=== PATIENT | female | born 2005 | race Caucasian/White ===

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

== ENCOUNTER 2024-03-07 19:16 | Emergency (ER) | payer BC ==
--- OUTSIDE RECORDS SUMMARY | 2024-03-07 19:19 | XMS REPORT | Continuity of Care Document ---
Author Name Unknown Address [address] [facility] [address] [place] [id number] [facility] Address [address] [facility] [address] [place] [address] Care Team Providers Care Credentials Specialist Name Role Phone KISHOR YUNG Primary Care Physician ARMIDA Mazariegos Attending Clinician Unavailab ARMIDA Barrett Attending Clinician Unavailab Armida Barrett DO Attending Clinician [phone] AMERICO NICOLE Attending Clinician Unavailable Americo Nicole MD Attending Clinician [phone] GC_GCBZW_Kadiyala_S Attending Clinician Unavaila Jonel Abdullahi Attending Clinician Unavailable Jonel Montgomery Attending Clinician [phone] Brianda Berry NP Attending Clinician [phone] CLARE VAZQUEZ Attending Clinician Unavailable Clare Rodríguez Attending Clinician + [phone] Pob, [facility] Main Attending Clinician UnavailAngelo Amaya MD Attending Clinician + [phone] ANGELO DUNCAN Attending Clinician Unavailkelly woodson Doctor Unassigned, Export Attending Clinician U RAFAELA Luna Attending Clinician Unavailable Lynda Pitts DO Attending Clinician [phone] Star Vigil MD Attending Clinician [phone] Rafaela Rooney MD Attending Clinician [phone] Lynda Norman MD Attending Clinician [phone] LYNDA NORMAN Attending Clinician Unavailable [email or web address]_Kadiyala_S Admitting Clinician UnavailRAFAELA Mi Admitting Clinician Unavailable Rafaela Rooney MD Admitting Clinician [phone] Payers Payer Name Policy Type Policy Number Effective Date Expirati on Date Source [facility] [id number] 2019 00:00:00 Problems Condition Name Condition Details Condition Category Status Onset Date Resolution Date Last Treatment Date Treating Clinician Comments Source Morbid obesity with body mass index of 40.0-49.9 Morbid obesity with body mass index of 40.0-49.9 Disease Active 01-02 00:00: 00 [facility] DUB (dysfuncti onal uterine bleeding) DUB (dysfuncti onal uterine bleeding) Disease Active 01-01 00:00: 00 [facility] No known active problems No known active problems Disease [facility] Allergies, Adverse Reactions, Alerts Allergy Name Allergy Type Status Severity Reaction(s) Onset Date Inactive Date Treating Clinician Comments Source Hydroxyz ine Propensi ty to adverse reaction s Active Rash 2020-07 00:00: 00 [facility] HYDROXYZ INE DRUG INGREDI Active Rash 2020-07 00:00: 00 [facility] Social History Social Habit Start Date Stop Date Quantity Comments Source Gender identity [facility] of Social function 2024-03-05 00:00:00 2024-03-05 00:00:00 [facility] Exposure to SARS-CoV-2 (event) 2022-01-04 00:00:00 2022-01-14 10:13:00 Not sure [facility] Tobacco use and exposure 2022-01-01 00:00:00 2022-01-01 00:00:00 Smokeless tobacco non-user [facility] Education 2022-01-01 00:00:00 2022-01-01 00:00:00 13 [facility] Sex assigned at 2003 00:00:00 2005 00:00:00 [facility] Smoking Status Start Date Stop Date Source Unknown if ever smoked [facility] Never smoked tobacco [facility] Medications Ordered Medication Name Filled Medication Name Start Date Stop Date Current Medication? Ordering Clinician Indication Dosage Frequency Signature (SIG) Comments Components Source ondansetron 4 mg disintegrat ing tablet 04-02 00:00: 00 Yes [id number] 4mg Take 1 tablet by mouth every 8 (eight) hours as needed for Nausea and Vomiting (N/V). [facility] benzonatate 200 mg capsule 04-02 00:00: 00 Yes [id number] 200mg Take 1 capsule by mouth 3 (three) times daily as needed for Cough for up to 20 doses. [facility] ibuprofen 600 mg tablet 04-02 00:00: 00 Yes [id number] 600mg Take 1 tablet by mouth every 6 (six) hours as needed for Pain (scale 4-6). [facility] cefdinir 300 mg capsule 04-02 00:00: 00 04-13 04:59 :00 No [id number] 300mg Take 1 capsule by mouth every 12 (twelve) hours for 10 days. [facility] penicillin g benzathine (BICILLIN L-A) injection 1.2 Million Units 01-23 18:00: 00 01-23 17:58 :00 No 1.210 1.2 Million Units, Intramuscu lar, ONCE, 1 dose, On Ina 01/23/23 at 1300, ANTONI
Re ason for Anti-Infec tive: Empiric Therapy for Suspected Infection< br>Empiric Therapy Site: HEENT
D uration of therapy: 72 hours [facility] medroxyPROG ESTERone 10 mg tablet 01-09 00:00: 00 01-02 00:00 :00 No [id number] 100 20mg Take 2 tablets by mouth daily for 10 days. [facility] escitalopra m oxalate (LEXAPRO) 10 mg tablet 01-04 00:15: 02 Yes 10mg Take 10 mg by mouth daily. [facility] escitalopra m oxalate (LEXAPRO) tablet 10 mg 01-03 14:00: 00 Yes 10mg 10 mg, Oral, DAILY, First dose on Fri01/03/22 at 0900, Until Discontinu ed, Routine [facility] medroxyPROG ESTERone (CYCRIN) tablet 20 mg 01-02 13:00: 00 01-09 12:59 :00 No 20mg [Order 1 Start] Name: medroxyPRO GESTERone (CYCRIN) tablet 20 mg Signed Summary: 20 mg, Oral, TID, 21 doses, First dose on Fri01/02/22 at 0800, Last dose on Fri01/08/22 at 2000, Routine [Order 1 End] [Order 2 Start] Name: medroxyPRO GESTERone (CYCRIN) tablet 20 mg Signed Summary: 20 mg, Oral, DAILY, First dose on Fri01/09/22 at 0900, Until Discontinu ed, Routine [Order 2 End] [facility] escitalopra m oxalate (LEXAPRO) 10 mg tablet 01-02 12:19: 03 Yes 10mg Take 10 mg by mouth daily. [facility] sertraline HCl (ZOLOFT ORAL) 01-02 10:31: 12 01-02 00:00 :00 No 50mg Take 50 mg by mouth daily. [facility] phentermine 37.5 mg tablet 01-02 10:31: 12 01-02 00:00 :00 No 37.5mg Take 37.5 mg by mouth daily with breakfast. [facility] acetaminoph en (TYLENOL) tablet 650 mg 01-02 03:30: 00 01-02 02:19 :00 No 650mg 650 mg, Oral, ONCE, 1 dose, On Fri01/01/22 at 2230, ANTONI [facility] NaCl 0.9% (NS) IV infusion 1,000 mL 01-02 03:15: 00 Yes 1000mL at 125 mL/hr, IV Infusion, CONTINUOUS , Starting on Fri01/01/22 at 2215, Until Discontinu ed, Routine [facility] ondansetron (ZOFRAN (PF)) injection 4 mg 01-02 03:07: 36 Yes 4mg 4 mg, Slow IV Push, Q6HPRN, Starting on Fri01/01/22 at 7, Until Discontinu ed, Routine, Nausea and Vomiting (N/V) [facility] HYDROcodone -acetaminop hen (NORCO) 10-325 mg tablet 1 tablet 01-02 03:07: 34 Yes 1{tbl} 1 tablet, Oral, Q6HPRN, Starting on Fri01/01/22 at 2207, Until Discontinu ed, Routine, Pain (scale 7-10) [facility] traMADoL (ULTRAM) tablet 50 mg 01-02 03:07: 31 01-04 03:06 :31 No 50mg 50 mg, Oral, Q8HPRN, Starting on Fri01/01/22 at 2206, Until Ina 01/03/22 at 2205, Routine, Pain (scale 4-6) [facility] acetaminoph en (TYLENOL) tablet 650 mg 01-02 03:07: 29 Yes 650mg 650 mg, Oral, Q6HPRN, Starting on Fri01/01/22 at 2206, Until Discontinu ed, Routine, Pain (scale 1-3) [facility] iopamidol (ISOVUE 370-500 mL) injection 70 mL 01-02 01:45: 00 01-02 00:31 :00 No [id number] 100 70mL 70 mL, Intravenou s, ONCE, 1 dose, On Fri01/01/22 at 2044, Routine [facility] medroxyPROG ESTERone 10 mg tablet 01-02 00:00: 00 01-10 04:59 :00 No [id number] 100 20mg Take 2 tablets by mouth 3 (three) times daily for 7 days. [facility] megestroL 40 mg tablet 01-01 00:00: 00 01-02 00:00 :00 No [id number] 100 Take by mouth Take one tablet twice a day for 7 days, then 1 tablet by mouth daily for 14 days. [facility] No known medications 2020-07 13:39: 35 No [facility] sertraline HCl (ZOLOFT ORAL) 2020-07 09:09: 46 Yes 50mg Take 50 mg by mouth daily. [facility] Immunizations Ordered Immunization Name Filled Immunization Name Date Status Comments Source SARS-COV-2 COVID-19 PFIZER VACCINE 2021-07-30 00:00:00 Completed [facility] SARS-COV-2 COVID-19 PFIZER VACCINE 2021-07-30 00:00:00 Completed [facility] SARS-COV-2 COVID-19 PFIZER VACCINE 2021-07-30 00:00:00 Completed [facility] SARS-COV-2 COVID-19 PFIZER VACCINE 2021-07-30 00:00:00 Completed [facility] SARS-COV-2 COVID-19 PFIZER VACCINE 2021-07-30 00:00:00 Completed [facility] SARS-COV-2 COVID-19 PFIZER VACCINE 2021-07-30 00:00:00 Completed [facility] SARS-COV-2 COVID-19 PFIZER VACCINE 2021-07-30 00:00:00 Completed [facility] SARS-COV-2 COVID-19 PFIZER VACCINE 2021-02-22 00:00:00 Completed [facility] SARS-COV-2 COVID-19 PFIZER VACCINE 2021-02-22 00:00:00 Completed [facility] SARS-COV-2 COVID-19 PFIZER VACCINE 2021-02-22 00:00:00 Completed [facility] SARS-COV-2 COVID-19 PFIZER VACCINE 2021-02-22 00:00:00 Completed [facility] SARS-COV-2 COVID-19 PFIZER VACCINE 2021-02-22 00:00:00 Completed [facility] SARS-COV-2 COVID-19 PFIZER VACCINE 2021-02-22 00:00:00 Completed [facility] SARS-COV-2 COVID-19 PFIZER VACCINE 2021-02-22 00:00:00 Completed [facility] Influenza Virus Vaccine Quad IM 3+ YRS 2017-05-20 00:00:00 Completed [facility] Influenza Virus Vaccine Quad IM 3+ YRS 2017-05-20 00:00:00 Completed [facility] Influenza Virus Vaccine Quad IM 3+ YRS 2017-05-20 00:00:00 Completed [facility] Influenza Virus Vaccine Quad IM 3+ YRS 2017-05-20 00:00:00 Completed [facility] Influenza Virus Vaccine Quad IM 3+ YRS 2017-05-20 00:00:00 Completed [facility] Influenza Virus Vaccine Quad IM 3+ YRS 2017-05-20 00:00:00 Completed [facility] Influenza Virus Vaccine Quad IM 3+ YRS 2017-05-20 00:00:00 Completed [facility] Influenza Virus Vaccine Quad IM 3+ YRS Unknown Completed [facility] SARS-COV-2 COVID-19 PFIZER VACCINE Unknown Completed [facility] SARS-COV-2 COVID-19 PFIZER VACCINE Unknown Completed [facility] Influenza Virus Vaccine Quad IM 3+ YRS Unknown Completed [facility] SARS-COV-2 COVID-19 PFIZER VACCINE Unknown Completed [facility] SARS-COV-2 COVID-19 PFIZER VACCINE Unknown Completed [facility] Vital Signs Vital Name Observation Time Observation Value Comments S ource Systolic blood pressure 2024-03-05 16:45:00 159 mm[Hg] [facility] Diastolic blood pressure 2024-03-05 16:45:00 130 mm[Hg] [facility] Heart rate 2024-03-05 16:45:00 96 /min [facility] 2024-03-05 16:45:00 36.28 Jennifer [facility] Respiratory rate 2024-03-05 16:45:00 17 /min [facility] Body height 2024-03-05 16:45:00 165.1 cm [facility] Body weight 2024-03-05 16:45:00 113.399 kg [facility] BMI 2024-03-05 16:45:00 41.60 kg/m2 [facility] Oxygen saturation in Arterial blood by Pulse oximetry 2024-03-05 16:45:00 96 /min [facility] Systolic blood pressure 2023-06-12 20:38:00 150 mm[Hg] [facility] Diastolic blood pressure 2023-06-12 20:38:00 80 mm[Hg] [facility] Heart rate 2023-06-12 20:38:00 93 /min [facility] Body temperature 2023-06-12 20:38:00 37.22 Jennifer [facility] Respiratory rate 2023-06-12 20:38:00 18 /min [facility] Body height 2023-06-12 20:38:00 165.1 cm [facility] Body weight 2023-06-12 20:38:00 106.595 kg [facility] BMI 2023-06-12 20:38:00 39.11 kg/m2 [facility] Oxygen saturation in Arterial blood by Pulse oximetry 2023-06-12 20:38:00 100 /min [facility] Systolic blood pressure 2023-04-02 12:57:00 136 mm[Hg] [facility] Diastolic blood pressure 2023-04-02 12:57:00 91 mm[Hg] [facility] Heart rate 2023-04-02 12:57:00 93 /min [facility] Body temperature 2023-04-02 12:57:00 36.78 Jennifer [facility] Respiratory rate 2023-04-02 12:57:00 16 /min [facility] Body weight 2023-04-02 12:57:00 105.235 kg [facility] BMI 2023-04-02 12:57:00 38.61 kg/m2 [facility] Oxygen saturation in Arterial blood by Pulse oximetry 2023-04-02 12:57:00 100 /min [facility] Systolic blood pressure 2023-04-02 01:41:00 148 mm[Hg] [facility] Diastolic blood pressure 2023-04-02 01:41:00 96 mm[Hg] [facility] Heart rate 2023-04-02 01:41:00 97 /min [facility] Body temperature 2023-04-02 01:41:00 37.61 Jennifer [facility] Respiratory rate 2023-04-02 01:41:00 20 /min [facility] Body height 2023-04-02 01:41:00 165.1 cm [facility] Body weight 2023-04-02 01:41:00 105.416 kg [facility] BMI 2023-04-02 01:41:00 38.67 kg/m2 [facility] Oxygen saturation in Arterial blood by Pulse oximetry 2023-04-02 01:41:00 100 /min [facility] Systolic blood pressure 2023-01-23 15:56:00 142 mm[Hg] [facility] Diastolic blood pressure 2023-01-23 15:56:00 98 mm[Hg] [facility] Heart rate 2023-01-23 15:56:00 108 /min [facility] Body temperature 2023-01-23 15:56:00 37.06 Jennifer [facility] Respiratory rate 2023-01-23 15:56:00 18 /min [facility] Body height 2023-01-23 15:56:00 165.1 cm [facility] Body weight 2023-01-23 15:56:00 107.049 kg [facility] BMI 2023-01-23 15:56:00 39.27 kg/m2 [facility] Oxygen saturation in Arterial blood by Pulse oximetry 2023-01-23 15:56:00 99 /min [facility] Systolic blood pressure 2022-01-14 20:22:00 159 mm[Hg] [facility] Diastolic blood pressure 2022-01-14 20:22:00 99 mm[Hg] [facility] Heart rate 2022-01-14 20:22:00 111 /min [facility] Body temperature 2022-01-14 20:22:00 36.89 Jennifer [facility] Respiratory rate 2022-01-14 20:22:00 20 /min [facility] Body weight 2022-01-14 20:22:00 117.935 kg [facility] Oxygen saturation in Arterial blood by Pulse oximetry 2022-01-14 20:22:00 99 /min [facility] Heart rate 2022-01-02 12:36:00 95 /min [facility] Respiratory rate 2022-01-02 12:36:00 18 /min [facility] Oxygen saturation in Arterial blood by Pulse oximetry 2022-01-02 12:36:00 97 /min [facility] Systolic blood pressure 2022-01-02 12:21:00 126 mm[Hg] [facility] Diastolic blood pressure 2022-01-02 12:21:00 69 mm[Hg] [facility] Body temperature 2022-01-02 12:21:00 35.61 Jennifer [facility] Body weight 2022-01-02 08:12:00 129.094 kg [facility] BMI 2022-01-02 08:12:00 47.36 kg/m2 [facility] Body mass index (BMI) [Percentile] Per age and sex 2022-01-02 08:12:00 99.30 % [facility] Body height 2022-01-02 03:19:00 165.1 cm [facility] Systolic blood pressure 2021-06-18 15:06:00 139 mm[Hg] [facility] Diastolic blood pressure 2021-06-18 15:06:00 68 mm[Hg] [facility] Heart rate 2021-06-18 15:06:00 107 /min [facility] Body height 2021-06-18 15:06:00 166.8 cm [facility] Body weight 2021-06-18 15:06:00 120.2 kg [facility] BMI 2021-06-18 15:06:00 43.20 kg/m2 [facility] Body mass index (BMI) [Percentile] Per age and sex 2021-06-18 15:06:00 99.15 % [facility] Procedures Procedure Date / Time Performed Performing Clinician Source CONSENT/REFUSAL FOR DIAGNOSIS AND TREATMENT 2023-06-12 20:29:28 Doctor Unassigned, Export [facility] ASSIGNMENT OF BENEFITS 2023-04-02 14:21:38 Docto r Unassigned, Export [facility] POCT TEST 2023-04-02 13:31:00 Jonel Brennan [facility] URINALYSIS 2023-04-02 13:30:00 Jonel Brennan [facility] RAPID INFLUENZA A/B 2023-04-02 13:30:00 Jonel Brennan [facility] COVID-19 (ID NOW RAPID TESTING) 2023-04-02 13:30:00 Jonel Brennan [facility] CONSENT/REFUSAL FOR DIAGNOSIS AND TREATMENT 2023-04-02 12:52:27 Doctor Unassigned, Export [facility] NOTICE OF PRIVACY PRACTICES 2023-04-02 01:19:44 Doctor Unassigned, Export [facility] CONSENT/REFUSAL FOR DIAGNOSIS AND TREATMENT 2023-04-02 01:18:55 Doctor Unassigned, Export [facility] RAPID STREP SCREEN FOR GROUP A 2023-01-23 16:23:00 Armida Dominguez [facility] ASSIGNMENT OF BENEFITS 2023-01-23 16:13:09 Docto r Unassigned, Export [facility] CONSENT/REFUSAL FOR DIAGNOSIS AND TREATMENT 2023-01-23 15:52:18 Doctor Unassigned, Export [facility] CONSENT/REFUSAL FOR DIAGNOSIS AND TREATMENT 2022-01-14 20:40:13 Doctor Unassigned, Export [facility] CONSENT/REFUSAL FOR DIAGNOSIS AND TREATMENT 2022-01-14 14:50:08 Doctor Unassigned, Export [facility] ASSIGNMENT OF BENEFITS 2022-01-14 14:49:53 Docto r Unassigned, Export [facility] BASIC METABOLIC PANEL (NA, K, CL, CO2, GLUCOSE, BUN, CREATININE, CA) 2022-01-02 08:18:00 [facility] CBC WITH DIFF 2022-01-02 08:18:00 Rafaela Rooney [facility] CT ABDOMEN PELVIS WO CONTRAST 2022-01-02 01:17:00 Star Vigil [facility] CT CHEST PULMONARY ANGIOGRAM 2022-01-02 00:38:00 Star Vigil [facility] US PELVIS COMPLETE WITH TRANSVAGINAL 2022-01-01 23:43:36 Lynda Pitts [facility] POCT TEST 2022-01-01 22:53:00 Dipak Pitts [facility] COMP. METABOLIC PANEL ([id number]) 2022-01-01 22:50:00 Lynda Pitts [facility] CBC WITH DIFF 2022-01-01 22:50:00 Lynda Pitts [facility] URINALYSIS 2022-01-01 22:50:00 Lynda Pitts [facility] COVID-19 (ID NOW RAPID TESTING) 2022-01-01 22:50:00 Lynda Pitts [facility] CONSENT/REFUSAL FOR DIAGNOSIS AND TREATMENT 2022-01-01 22:17:00 Doctor Unassigned, Export [facility] EXTERNAL PROVIDER RECORDS 2021-07-02 06:01:00 Doctor Unassigned, Export [facility] SCANNED LAB RESULTS 2021-04-30 05:01:00 Doctor Maria Elena brownsignconrad, Export [facility] Encounters Start Date/Time End Date/Time Encounter Type Admission Type Attending Clinicians Care Facility Care Department Encounter ID Source 2024-03-05 11:50:00 2024-03-05 12:13:00 Emergency ARMIDA ACEVEDO SANDRA [facility] ERT [id number] [facility] 2024-03-05 11:50:00 2024-03-05 12:13:00 Emergency Armida Dominguez [facility] [id number] [facility] 2023-06-12 14:39:00 2023-06-12 16:14:00 Emergency AMERICO ARIAS [facility] ERT [id number] [facility] 2023-06-12 14:39:00 2023-06-12 16:14:00 Emergency Americo Nicole [facility] [id number] [id number] [id number] [facility] 2023-05-28 00:00:00 2023-05-28 00:00:00 Outpatient GC_GCBZW_Ka diyala_S [facility] [id number] [facility] 2023-04-02 07:59:00 2023-04-02 09:31:00 Emergency X Jonel BRENNAN [facility] ERT [id number] [facility] 2023-04-02 07:59:00 2023-04-02 09:31:00 Emergency Jonel Brennan [facility] [id number] [id number] [facility] 2023-04-01 20:43:00 2023-04-01 22:39:00 Emergency Brianda Berry [facility] [id number] [id number] [id number] [facility] 2023-04-01 20:43:00 2023-04-01 22:39:00 Emergency X BRIANDA BERRY [facility] ERT [id number] [facility] 2023-01-23 10:58:00 2023-01-23 13:08:00 Emergency X ARMIDA DOMINGUEZ [facility] ERT [id number] [facility] 2023-01-23 10:58:00 2023-01-23 13:08:00 Emergency Armida Dominguez [facility] [id number] [id number] [id number] [id number] [facility] 2022-01-14 15:26:00 2022-01-14 16:52:00 Emergency X CLARE VAZQUEZ [facility] ERT [id number] [facility] 2022-01-14 15:26:00 2022-01-14 16:52:00 [facility] 1..114 [id number] [id number] [id number] [facility] 2022-01-14 12:00:00 2022-01-14 12:15:00 Oriental Rug Repairer Visit Pob, Adc Lab Main [place] [facility] PROFESSIO [facility] 1..114 [id number] [id number] [id number] [facility] 2022-01-14 12:00:00 2022-01-14 12:00:00 Outpatient R [facility] [id number] [facility] 2022-01-14 00:00:00 2022-01-14 00:00:00 Orders Only Doctor Unassigned, Export [facility] 1..114 350.1.13.10 4.2.7.2.686 [id number] [facility] 2022-01-01 17:22:00 2022-01-02 12:15:[address] [facility] [id number] [facility] 2022-01-01 17:22:00 2022-01-02 12:15:00 [facility]..114 350.1.13.10 4.2.7.2.686 [id number] [facility] 2021-07-02 00:00:00 2021-07-02 00:00:00 Orders Only Doctor Unassigned, Export [facility] 1.20.114 350.1.13.10 4.2.7.2.686 [id number] [facility] 2021-06-18 08:56:35 2021-06-18 09:16:35 Office Visit Lynda Norman [facility] 1.2.840.114 350.1.13.10 4.2.7.2.686 [id number] [facility] 2021-06-18 09:10:00 2021-06-18 09:10:00 Outpatient R LYNDA NORMAN [facility] [id number] [facility] 2021-06-18 00:00:00 2021-06-18 00:00:00 Orders Only Doctor Unassigned, Export [facility] 1..840.114 350.1.13.10 4.2.7.2.686 [id number] [facility] 2021-04-30 00:00:00 2021-04-30 00:00:00 Orders Only Doctor Unassigned, Export [facility] 1.2.840.114 350.1.13.10 4.2.7.2.686 [id number] [facility] Results Test Description Test Time Test Comments Results Result Co mments Source [facility] (NA, K, CL, CO2, GLUCOSE, BUN, CREATININE, CA)2022-01-02 09:17:29* Test Item Value Reference Range Interpretation Comme nts NA (test code = 7450703771) 139 mmol/L 135-145 K (test code = 6042770963) 3.5 mmol/L 3.5-5.0 CL (test code = 4007862674) 105 mmol/L 98-108 CO2 TOTAL (test code = 7091305195) 26 mmol/L 23-31 AGAP (test code = 1822702532) 2-16 BUN (test code = 6103479802) 7 mg/dL 7-23 GLUCOSE (test code = 0739816113) 130 mg/dL 70-110 H CREATININE (test code = 2100679087) 0.72 mg/dL 0.50-1.04 CALCIUM (test code = 2635755946) 8.9 mg/dL 8.6-10.6 eGFR (test code = 8255981865) mL/min/1.73m2 LILIANA (test code = LILIANA) Association of Glomerular Filtration Rate (GFR) and Staging of Kidney Disease* + --+ --+ ------+| GFR (mL/min/1.73 m2) ?| With Kidney Damage ?| ?Without Kidney Damage+ --------+ --------+ +| ?>90 ?| ?Stage one ?| ? Normal ?+ ---+ ---+ -------+| ?60-89 ?| ?Stage two ?| ? Decreased GFR ? + --+ --+ ------+| ?30-59 ?| ?Stage three ?| ? Stage three ? + --+ --+ ------+| ?15-29 ?| ?Stage four ? | ? Stage four ?+ ---+ ---+ -------+| ?<15 (or dialysis) ? ?| ?Stage five ? | ? Stage five ?+ ---+ ---+ -------+ *Each stage assumes the associated GFR level has been in effect for at least three months. ?Stages 1 to 5, with or without kidney disease, indicate chronic kidney disease. Notes: Determination of stages one and two (with eGFR >59mL/min/1.73 m2) requires estimation of kidney damage for at least three months as defined by structural or functional abnormalities of the kidney, manifested by either:Pathological abnormalities or Markers of kidney damage (including abnormalities in the composition of the blood or urine or abnormalities in imaging tests). Lab Interpretation (test code = 41021-9) Abnormal [facility] with [id number] 09:02:06* Test Item Value Reference Range Interpretation Comme nts WBC (test code = 6690-2) See_Comment [Automated BeavEx] The system which generated this result transmitted reference range: 4.50 - 13.50 10*3/?L. The reference range was not used to interpret this result as normal/abnormal. RBC (test code = 789-8) See_Comment L [Automated BeavEx] The system which generated this result transmitted reference range: 4.10 - 5.10 10*6/?L. The reference range was not used to interpret this result as normal/abnormal. HGB (test code = 718-7) 9.8 g/dL 12.0-16.0 L HCT (test code = 4544-3) 29.9 % 36.0-45.0 L MCV (test code = 787-2) 84.2 fL 78.0-95.0 MCH (test code = 785-6) 27.6 pg 26.0-32.0 MCHC (test code = 786-4) 32.8 g/dL 32.0-36.0 RDW-SD (test code = 40059-9) 42.3 fL 38.5-49.0 RDW-CV (test code = 788-0) 13.6 % 11.5-14.0 PLT (test code = 777-3) See_Comment [Automated EpiVaxa ge] The system which generated this result transmitted reference range: 135 - 361 10*3/?L. The reference range was not used to interpret this result as normal/abnormal. MPV (test code = 63565-1) 11.0 fL 9.4-13.3 NRBC/100 WBC (test code = 6215407049) See_Comment [Automated Smallknot ssage] The system which generated this result transmitted reference range: 0.0 - 10.0 /100 WBCs. The reference range was not used to interpret this result as normal/abnormal. NRBC x10^3 (test code = 1276341064) <0.01 See_Comment [Automated EpiVaxa ge] The system which generated this result transmitted reference range: 10*3/?L. The reference range was not used to interpret this result as normal/abnormal. GRAN MAT (NEUT) % (test code = 770-8) 52.2 % IMM GRAN % (test code = 6000332533) 0.40 % LYMPH % (test code = 736-9) 38.6 % MONO % (test code = 5905-5) 6.4 % EOS % (test code = 713-8) 1.8 % BASO % (test code = 706-2) 0.6 % GRAN MAT x10^3(ANC) (test code = 4246871455) 4.14 10*3/uL 1.50-10.30 IMM GRAN x10^3 (test code = 5803525320) 0.03 10*3/uL 0.00-0.06 LYMPH x10^3 (test code = 731-0) 3.06 10*3/uL 0.70-7.40 MONO x10^3 (test code = 742-7) 0.51 10*3/uL 0.00-0.50 H EOS x10^3 (test code = 711-2) 0.14 10*3/uL 0.00-0.40 BASO x10^3 (test code = 704-7) 0.05 10*3/uL 0.00-0.10 Lab Interpretation (test code = 98750-1) Abnormal [facility] (81082)2022-01-01 23:36:03* Test Item Value Reference Range Interpretation Comme nts NA (test code = 2392022023) 137 mmol/L 135-145 K (test code = 4185653649) 3.7 mmol/L 3.5-5.0 CL (test code = 5843117999) 103 mmol/L 98-108 CO2 TOTAL (test code = 6608644541) 23 mmol/L 23-31 AGAP (test code = 5154617590) 2-16 BUN (test code = 3751068531) 7 mg/dL 7-23 GLUCOSE (test code = 1020291409) 147 mg/dL 70-110 H CREATININE (test code = 6167522349) 0.74 mg/dL 0.50-1.04 TOTAL BILI (test code = 6264543506) 0.6 mg/dL 0.1-1.1 CALCIUM (test code = 7664322544) 9.3 mg/dL 8.6-10.6 T PROTEIN (test code = 7617598409) 7.3 g/dL 6.3-8.2 ALBUMIN (test code = 6302976445) 4.4 g/dL 3.5-5.0 ALK PHOS (test code = 4033776676) 80 U/L 34-122 ALTv (test code = 1742-6) 19 U/L 5-35 AST(SGOT) (test code = 9144069438) 23 U/L 13-40 eGFR (test code = 7398200674) mL/min/1.73m2 LILIANA (test code = LILIANA) Association of Glomerular Filtration Rate (GFR) and Staging of Kidney Disease* + --+ --+ ------+| GFR (mL/min/1.73 m2) ?| With Kidney Damage ?| ?Without Kidney Damage+ --------+ --------+ +| ?>90 ?| ?Stage one ?| ? Normal ?+ ---+ ---+ -------+| ?60-89 ?| ?Stage two ?| ? Decreased GFR ? + --+ --+ ------+| ?30-59 ?| ?Stage three ?| ? Stage three ? + --+ --+ ------+| ?15-29 ?| ?Stage four ? | ? Stage four ?+ ---+ ---+ -------+| ?<15 (or dialysis) ? ?| ?Stage five ? | ? Stage five ?+ ---+ ---+ -------+ *Each stage assumes the associated GFR level has been in effect for at least three months. ?Stages 1 to 5, with or without kidney disease, indicate chronic kidney disease. Notes: Determination of stages one and two (with eGFR >59mL/min/1.73 m2) requires estimation of kidney damage for at least three months as defined by structural or functional abnormalities of the kidney, manifested by either:Pathological abnormalities or Markers of kidney damage (including abnormalities in the composition of the blood or urine or abnormalities in imaging tests). Lab Interpretation (test code = 05062-4) Abnormal [facility] WITH [id number] 23:15:57* Test Item Value Reference Range Interpretation Comme nts WBC (test code = 6690-2) See_Comment [Automated BeavEx] The system which generated this result transmitted reference range: 4.50 - 13.50 10*3/?L. The reference range was not used to interpret this result as normal/abnormal. RBC (test code = 789-8) See_Comment L [Automated BeavEx] The system which generated this result transmitted reference range: 4.10 - 5.10 10*6/?L. The reference range was not used to interpret this result as normal/abnormal. HGB (test code = 718-7) 10.5 g/dL 12.0-16.0 L HCT (test code = 4544-3) 31.6 % 36.0-45.0 L MCV (test code = 787-2) 83.4 fL 78.0-95.0 MCH (test code = 785-6) 27.7 pg 26.0-32.0 MCHC (test code = 786-4) 33.2 g/dL 32.0-36.0 RDW-SD (test code = 57057-7) 41.6 fL 38.5-49.0 RDW-CV (test code = 788-0) 13.6 % 11.5-14.0 PLT (test code = 777-3) See_Comment [Automated messa ge] The system which generated this result transmitted reference range: 135 - 361 10*3/?L. The reference range was not used to interpret this result as normal/abnormal. MPV (test code = 32990-4) 10.8 fL 9.4-13.3 NRBC/100 WBC (test code = 8609752114) See_Comment [Automated Smallknot ssage] The system which generated this result transmitted reference range: 0.0 - 10.0 /100 WBCs. The reference range was not used to interpret this result as normal/abnormal. NRBC x10^3 (test code = 4701800988) <0.01 See_Comment [Automated messa ge] The system which generated this result transmitted reference range: 10*3/?L. The reference range was not used to interpret this result as normal/abnormal. GRAN MAT (NEUT) % (test code = 770-8) 67.9 % IMM GRAN % (test code = 8315644221) 0.40 % LYMPH % (test code = 736-9) 25.9 % MONO % (test code = 5905-5) 4.1 % EOS % (test code = 713-8) 1.1 % BASO % (test code = 706-2) 0.6 % GRAN MAT x10^3(ANC) (test code = 8937266418) 6.14 10*3/uL 1.50-10.30 IMM GRAN x10^3 (test code = 7493342373) 0.04 10*3/uL 0.00-0.06 LYMPH x10^3 (test code = 731-0) 2.34 10*3/uL 0.70-7.40 MONO x10^3 (test code = 742-7) 0.37 10*3/uL 0.00-0.50 EOS x10^3 (test code = 711-2) 0.10 10*3/uL 0.00-0.40 BASO x10^3 (test code = 704-7) 0.05 10*3/uL 0.00-0.10 Lab Interpretation (test code = 12044-4) Abnormal [facility] [id number] 22:53:00* Test Item Value Reference Range Interpretation Comme nts POCT PREG (test code = 1605) negative On board controls acceptable with C Line (test code = 3574) present POCT PREG LOT # (test code = 3575) [id number] POCT PREG TEST DATE ( test code = 3576) 04/26/2023 Lab Interpretation (test cod e = 53249-7) Normal [facility] Notes Date/Time Note Provider Source 2024-03-05 12:00:00 Pt given printed and verbal discharge instructions regarding radial styloid tenosynovitis, encouraged hydration. Discussed ibuprofen and to take with food to avoid GI distress. Pt verbalized understanding of instructions, pt awake alert oriented, resp reg unlabored, skin w/d, color appropriate for race, moves all ext well,pt encouraged to follow up with pcp. Advised to seek medical attention for new/prolonged/worsening of symptoms. Awake, alert oriented, resp reg unlabored, skin w/d, pt leaving amb with steady gait, in no apparent distress. T [facility] 2024-03-05 11:45:37 Patient states: "I've been having right wrist pain since 4 days now. The pain came out of nowhere. Yesterday the pain is worse." T Becky Montgomery RN [facility] 2024-03-05 11:39:00 [facility] Emergency Department Note Patient Name: De Ross Date of : 2005 18 year old female Treatment Room: [facility] ED [facility] Primary Care Physician: Kishor Yung Patient Escorted by: Self [9] Mode of Arrival: Personal means [1] EMS Treatment Prior to ED Arrival: Travel and Exposure Screening: Symptoms Does patient have any of these symptoms?: (not recorded) Exposure Screening Has patient had contact with someone with a communicable disease in the last month?: (not recorded) Diseases exposed to:: (not recorded) Is Patient ?: (not recorded) Exposure Date: (not recorded) Chief Complaint: Chief Complaint Patient presents with Wrist Pain right History of Present Illness: The patient presents from home for evaluation for right wrist pain for the past several days. She denies any injury or trauma. She is right-handed. She reports the pain is worse with movement of her thumb. She denies other complaints. Here for evaluation. Past Medical History/Immunizations: Past Medical History: Diagnosis Date Depression Allergies: Allergies Allergen Reactions Hydroxyzine Rash Past Social History: Tobacco Use Never smoked or used smokeless tobacco. Past Surgical History: History reviewed. No pertinent surgical history. Review of Systems: Review of Systems Constitutional: Negative for chills and fever. Respiratory: Negative for cough. Cardiovascular: Negative for chest pain. Gastrointestinal: Negative for abdominal pain. Genitourinary: Negative for dysuria. Musculoskeletal: Positive for arthralgias. Negative for neck pain and neck stiffness. Skin: Negative for wound. Neurological: Negative for dizziness. Psychiatric/Behavioral: Negative for agitation. Endocrine: Negative for goiter. Physical Exam: ED Triage Vitals [03/05/24 1145] Weight 113.4 kg (250 lb) Actual or estimated Estimated by patient/family report Height 1.651 m (5' 5") BP (!) 159/130 Pulse 96 Resp 17 Temp 36.3 ?C (97.3 ?F) Temp source Oral SpO2 96 % Measured on Room air Physical Exam Vitals and nursing note reviewed. Constitutional: Appearance: Normal appearance. She is obese. HENT: Head: Normocephalic and atraumatic. Cardiovascular: Rate and Rhythm: Normal rate. Pulses: Normal pulses. Pulmonary: Effort: Pulmonary effort is normal. Abdominal: General: There is no distension. Musculoskeletal: General: Normal range of motion. Cervical back: Neck supple. Skin: General: Skin is warm. Neurological: General: No focal deficit present. Mental Status: She is alert. Radiology: No orders to display Lab Results: Lab Results - No data to display EKG: If EKG completed, see Procedure Note. Orders and Treatments: No orders of the defined types were placed in this encounter. No orders of the defined types were placed in this encounter. First Provider Eval: ED Events Date/Time Event User Comments 03/05/24 1140 Medical Screening Begins ARMIDA DOMINGUEZ DO -- 03/05/24 1140 First Provider Evaluation ARMIDA DOMINGUEZ DO -- ED COURSE Diagnosis/Impression as of 03/05/24 1153 Radial styloid tenosynovitis Procedures: Procedures MDM: Medical Decision Making The patient presents from home for evaluation for right wrist pain for the past several days. She denies any injury or trauma. She is right-handed. She reports the pain is worse with movement of her right thumb. Vital signs are stable in ER. +2 radial pulse right side. Full range of motion of her right wrist without difficulty. Opposition and abduction of her right thumb reproduces her pain. Suspect de Quervain's tenosynovitis. Will give the patient a thumb spica splint. She remained stable here in the ER and is okay for discharge home with PCP follow-up. Problems Addressed: Radial styloid tenosynovitis: acute illness or injury Risk OTC drugs. Flowsheet Documentation: Scoring Tools: No data recorded Disposition/Condition: ED Disposition ED Disposition Disch - Home Condition Stable Comment -- Discharge Medications: Patient's Medications START taking these medications No medications on file CONTINUE taking these medications which have NOT CHANGED BENZONATATE 200 MG CAPSULE Take 1 capsule by mouth 3 (three) times daily as needed for Cough for up to 20 doses. ESCITALOPRAM OXALATE (LEXAPRO) 10 MG TABLET Take 10 mg by mouth daily. IBUPROFEN 600 MG TABLET Take 1 tablet by mouth every 6 (six) hours as needed for Pain (scale 4-6). ONDANSETRON 4 MG DISINTEGRATING TABLET Take 1 tablet by mouth every 8 (eight) hours as needed for Nausea and Vomiting (N/V). START taking Modified Medications as Prescribed No medications on file STOP taking these medications No medications on file Follow-up: Electronically signed by: Armida Dominguez DO 03/05/24 1153 [facility] 2023-04-02 09:24:05 Formatting of this n ote might be different from the original. PT D/C home. GCS15, VS stable, no ataxia noted. Given four prescriptions and D/C paperwork. Pt ambulatory at time of discharge. Pt educated on UTI, viral syndrome, med usage, follow up care, s/s worsening condition. Pt verbalized understanding. Joie Meredith RN [facility] 2023-04-02 07:57:07 Formatting of this n ote might be different from the original. C/o dysuria x2 days and cough, congestion and hiral ear pain that started yesterday. Pita Arenas RN [facility] 2023-04-01 21:30:00 Formatting of this n ote might be different from the original. PT NOT PRESENT IN TREATMENT AREA, NOT ANSWERING CALL TO WAITING ROOM. Kimberly August RN [facility] 2023-04-01 20:40:08 Formatting of this n ote might be different from the original. Pt arrived ambulatory with complaints of possible UTI. Pt reports dysuria, frequency, body aches and vomiting since last night. Pt reports unprotected sex a week ago. T [facility]
--- NOTE | 2024-03-07 20:55 | RAD REPORT ---
EXAM DESCRIPTION: RAD - Wrist Right 3 View - 03/07/2024 8:49 pm CLINICAL HISTORY: PAIN COMPARISON: No comparisons FINDINGS/IMPRESSION: No acute fracture. Ulnar minus variance. No significant focal degenerative daniels ges.
--- NOTE | 2024-03-07 21:36 | EDPHYS ---
Physician Documentation [facility] Name: Nasra Hadley Age: 18 yrs Sex: Female : 2005 Arrival Date: 03/07/2024 Time: 19:16 Bed 10 Private MD: ED Physician Gary Escudero HPI: 03/07 23:59 This 18 yrs old Female presents to ER via Ambulatory with complaints of Wrist Injury. ms3 23:59 18-year-old female with past medical history of depression presents to the emergency ms3 department for right wrist pain status post trying to catch herself when falling. Patient states she fell approximately 6 hours prior to arrival. Patient states the discomfort is sharp/shooting pain that is rated an 8.. 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 - Infectious Disease History:: Denies. - Social history:: Smoking status: Patient reports the use of cigarette tobacco products, smokes one-half pack cigarettes per day. ROS: 23:59 Constitutional: Negative for fever, and chills. Neck: Negative for injury, pain, and ms3 swelling, Cardiovascular: Negative for chest pain, and palpitations. Respiratory: Negative for shortness of breath, cough, wheezing, and pleuritic chest pain, Abdomen/GI: Negative for abdominal pain, nausea, vomiting, diarrhea, and constipation, 23:59 MS/extremity: Positive for Wrist pain, Exam: 23:59 Constitutional: This is a well developed, well nourished patient who is awake, alert, ms3 and in no acute distress. Cardiovascular: Regular rate and rhythm with a normal S1 and S2. No gallops, murmurs, or rubs. Normal PMI, no JVD. No pulse deficits. Respiratory: Lungs have equal breath sounds bilaterally, clear to auscultation and percussion. No rales, rhonchi or wheezes noted. No increased work of breathing, no retractions or nasal flaring. Abdomen/GI: Soft, non-tender, with normal bowel sounds. No distension or tympany. No guarding or rebound. No evidence of tenderness throughout. Skin: Warm, dry with normal turgor. Normal color with no rashes, no lesions, and no evidence of cellulitis. 23:59 Musculoskeletal/extremity: Extremities: noted in the Right wrist: pain, tenderness, There is no evidence of deformity, swelling, Vital Signs: 19:31 BP 134 / 74; Pulse 92; Resp 18; Temp 99(O); Pulse Ox 99% ; Weight 113.4 kg; Height 5 nj1 ft. 5 in. ; Pain 6/10; 20:00 BP 128 / 83; Pulse 81; Resp 17; Temp 98; Pulse Ox 100% on R/A; Pain 6/10; rg5 21:30 BP 122 / 77; Pulse 81; Resp 17; Temp 98; Pulse Ox 99% on R/A; Pain 3/10; rg5 19:31 Body Mass Index 41.60 (113.40 kg, 165.1 cm) nj1 19:31 Pain Scale: Adult nj1 20:00 Pain Scale: Adult rg5 21:30 Pain Scale: Adult rg5 [place] Coma Score: 20:00 Eye Response: spontaneous(4). Motor Response: obeys commands(6). Verbal Response: rg5 oriented(5). Total: 15. MDM: 20:23 Patient medically screened. ms3 23:59 Differential diagnosis: closed fracture, contusion. Data reviewed: vital signs, nurses ms3 notes, radiologic studies, and as a result, I will discharge patient. I considered the following discharge prescriptions or medication management in the emergency department Medications were administered in the Emergency Department. See MAR. Independent interpretation of the following test(s) in the Emergency Department X-Ray: My interpretation is Right wrist x-ray images reviewed by me do not reveal fracture. Counseling: I had a detailed discussion with the patient and/or guardian regarding the historical points, exam findings, and any diagnostic results supporting the discharge/admit diagnosis, radiology results, the need for outpatient follow up, to return to the emergency department if symptoms worsen or persist or if there are any questions or concerns that arise at home. Special discussion: I discussed with the patient/guardian in detail that at this point there is no indication for admission to the hospital. It is understood, however, that if the symptoms persist or worsen the patient needs to return immediately for re-evaluation. ED course: Discussed x-ray results with patient. Patient to follow-up Dr. Man in 2 to 3 days. Patient understands agrees with plan. All questions were answered. Patient currently in thumb spica splint from home. On reevaluation no signs of compartment syndrome present, right hand neurovascularly intact. 03/07 20:47 Order name: Wrist Right 3 View; Complete Time: 21:06 EDMS Administered Medications: 21:46 Drug: Ibuprofen PO 600 mg PO once Route: PO; rg5 Disposition Summary: 03/07/24 21:36 Discharge Ordered Notes: Location: Home ms3 Condition: Stable ms3 Diagnosis - Pain in right wrist ms3 Followup: ms3 - With: Bautista Man MD - When: 2 - 3 days - Reason: Recheck today's complaints Discharge Instructions: - Discharge Summary Sheet ms3 - Wrist Pain, Adult ms3 - Wrist Pain, Adult, [place] ms3 Forms: - Medication Reconciliation Form ms3 - Antibiotic Education ms3 - Prescription Opioid Use ms3 - Patient Portal Instructions ms3 - Leadership Thank You Letter ms3 Prescriptions: - Ibuprofen 600 mg Oral Tablet - take 1 tablet ORAL route every 6 hours As needed take with food; 30 tablet; ms3 Refills: 0, Product Selection Permitted Signatures: Dispatcher [employer] EDGary Marrero DO DO ms3 Izzy Espino, RN RN nj1 Wes Karimi, RN RN rg5 Corrections: (The following items were deleted from the chart) 20:47 20:24 Wrist Left 3 View+RAD.RAD.BRZ ordered. EDMS EDMS
--- NOTE | 2024-03-07 21:36 | ER ---
Nurse's Notes [facility] Name: Nasra Hadley Age: 18 yrs Sex: Female : 2005 Arrival Date: 03/07/2024 Time: 19:16 Bed 10 Private MD: Diagnosis: Pain in right wrist Presentation: 03/07 19:31 Chief complaint: Patient states: Tripped and fell hurting right hand/wrist. Coronavirus [facility] screen: Vaccine status: Patient reports receiving the 2nd dose of the covid vaccine. Ebola Screen: Patient denies travel to an Ebola-affected area in the 21 days before illness onset. Initial Sepsis Screen: Does the patient meet any 2 criteria? HR > 90 bpm. No. Patient's initial sepsis screen is negative. Does the patient have a suspected source of infection? No. Patient's initial sepsis screen is negative. Risk Assessment: Do you want to hurt yourself or someone else? Patient reports no desire to harm self or others. Onset of symptoms was March 07, 2024. 19:31 Method Of Arrival: Ambulatory [facility] 19:31 Acuity: LINDA 4 [facility] Triage Assessment: 20:00 Injury Description: swelling right wrist. 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 - Infectious Disease History:: Denies. - Social history:: Smoking status: Patient reports the use of cigarette tobacco products, smokes one-half pack cigarettes per day. Screenin:00 [facility] ED Fall Risk Assessment (Adult) History of falling in the last 3 months, rg5 including since admission No falls in past 3 months (0 pts) Confusion or Disorientation No (0 pts) Intoxicated or Sedated No (0 pts) Impaired Gait No (0 pts) Mobility Assist Device Used No (0 pt) Altered Elimination No (0 pt) Score/Fall Risk Level 0 - 2 = Low Risk Oriented to surroundings, Maintained a safe environment, Hourly rounding (assess needs \T\ fall precautionary measures) done. Abuse screen: Denies threats or abuse. Nutritional screening: No deficits noted. Tuberculosis screening: No symptoms or risk factors identified. Assessment: 20:00 General: Appears in no apparent distress. Behavior is calm, cooperative, appropriate rg5 for age. 20:00 Pain: Complains of pain in right wrist Pain currently is 6 out of 10 on a pain scale. rg5 Quality of pain is described as aching, Pain began 2 hours ago. Neuro: Level of Consciousness is awake, alert, obeys commands, Oriented to person, place, time. Cardiovascular: Denies chest pain, shortness of breath, Capillary refill < 3 seconds. Respiratory: Airway is patent Trachea midline Respiratory effort is even, unlabored, Respiratory pattern is regular, symmetrical. GI: Abdomen is round non-distended. : No signs and/or symptoms were reported regarding the genitourinary system. EENT: No deficits noted. Derm: Skin is intact, Skin is dry, Skin is normal, Skin temperature is warm. Musculoskeletal: Range of motion: intact in all extremities. 21:30 Reassessment: Patient and/or family updated on plan of care and expected duration. Pain rg5 level reassessed. Patient is alert, oriented x 3, equal unlabored respirations, skin warm/dry/pink. Patient states feeling better. Patient states symptoms have improved. Vital Signs: 19:31 BP 134 / 74; Pulse 92; Resp 18; Temp 99(O); Pulse Ox 99% ; Weight 113.4 kg; Height 5 nj1 ft. 5 in. ; Pain 6/10; 20:00 BP 128 / 83; Pulse 81; Resp 17; Temp 98; Pulse Ox 100% on R/A; Pain 6/10; rg5 21:30 BP 122 / 77; Pulse 81; Resp 17; Temp 98; Pulse Ox 99% on R/A; Pain 3/10; rg5 19:31 Body Mass Index 41.60 (113.40 kg, 165.1 cm) nj1 19:31 Pain Scale: Adult nj1 20:00 Pain Scale: Adult rg5 21:30 Pain Scale: Adult rg5 Niraj Coma Score: 20:00 Eye Response: spontaneous(4). Motor Response: obeys commands(6). Verbal Response: rg5 oriented(5). Total: 15. ED Course: 19:20 Patient arrived in ED. ra3 19:20 Gary Escudero DO is Attending Physician. ms3 19:34 Triage completed. nj1 19:35 Arm band placed on left wrist. nj1 20:00 Patient has correct armband on for positive identification. Bed in low position. Call rg5 light in reach. Side rails up X 1. Provided Education on: post er care. 20:00 No provider procedures requiring assistance completed. Patient did not have IV access rg5 during this emergency room visit. 20:18 Wes Karimi, RN is Primary Nurse. rg5 20:51 Wrist Right 3 View In Process Unspecified. EDMS 21:35 Bautista Man MD is Referral Physician. ms3 Administered Medications: 21:46 Drug: Ibuprofen PO 600 mg PO once Route: PO; rg5 Medication: 20:00 VIS not applicable for this client. rg5 Outcome: 21:36 Discharge ordered by . ms3 21:47 Discharged to home ambulatory, rg5 21:47 Condition: stable 21:47 Discharge instructions given to patient, Instructed on discharge instructions, follow up and referral plans. Demonstrated understanding of instructions, follow-up care, medications, Prescriptions given X 1, 21:49 Patient left the ED. rg5 Signatures: Dispatcher [employer] EDMN Gary Escudero DO DO ms3 Izzy Espino, RN RN nj1 Shayy Alcala ra3 Wes Karimi, RN RN rg5
[2024-03-07] MEDS ORDERED: IBUPROFEN 400 MG TAB ONE (21:39)
[2024-03-07] MEDS ORDERED: IBUPROFEN 200 MG TAB PO ONE (21:39)
[2024-03-07 22:35] VITALS: TEMP 98
[2024-03-07 22:36] VITALS: BP 122/77; O2SAT 99
== END 2024-03-07 21:49 | disposition home or self-care (01) ==
LOC: ER 19:16
DX: M25.531 Pain in right wrist (principal)
CPT/HCPCS: 99283

== ENCOUNTER 2024-07-13 08:46 | Emergency (ER) | payer BC ==
--- OUTSIDE RECORDS SUMMARY | 2024-07-13 08:51 | XMS REPORT | Continuity of Care Document ---
Author Name Unknown Address [address] [facility]. 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 Name Role Phone KISHOR TOM Primary Care Physician ARMIDA Mazariegos Attending Clinician Unavailab ARMIDA Barrett Attending Clinician Unavailab Armida Barrett DO Attending Clinician [phone] AMERICO NICOLE Attending Clinician Unavailable Americo Nicole MD Attending Clinician [phone] GC_GCBZW_Kadiyala_S Attending Clinician UnavailJonel Mccauley Attending Clinician Unavailable Jonel Montgomery Attending Clinician [phone] Brianda Berry NP Attending Clinician [phone] CLARE VAZQUEZ Attending Clinician Unavailable Clare Rodríguez Attending Clinician + [phone] Pob, Ad[facility] Main Attending Clinician UnavailAngelo Amaya MD Attending Clinician [phone] ANGELO DUNCAN Attending Clinician Unavailkelly woodson Doctor Unassigned, [place] Attending Clinician RAFAELA Delacruz Attending Clinician Unavailable Lynda Pitts DO Attending Clinician [phone] Star Vigil MD Attending Clinician [phone] Rafaela Rooney MD Attending Clinician [phone] Lynda Norman MD Attending Clinician [phone] LYNDA NORMAN Attending Clinician Unavailable GC_GCBZW_Kadiyala_S Admitting Clinician UnavailRAFAELA Mi Admitting Clinician Unavailable Rafaela Rooney MD Admitting Clinician [phone] Payers Payer Name Policy Type Policy Number Effective Date Expirati on Date Source [facility] [id number] 2019 00:00:00 Problems Condition Name Condition Details Condition Category Status Onset Date Resolution Date Last Treatment Date Treating Clinician Comments Source Morbid obesity with body mass index of 40.0-49.9 Morbid obesity with body mass index of 40.0-49.9 Disease Active 01-02 00:00: 00 [facility] DUB (dysfuncti onal uterine bleeding) DUB (dysfuncti onal uterine bleeding) Disease Active 01-01 00:00: 00 [facility] No known active problems No known active problems Disease [facility] Allergies, Adverse Reactions, Alerts Allergy Name Allergy Type Status Severity Reaction(s) Onset Date Inactive Date Treating Clinician Comments Source Hydroxyz ine Propensi ty to adverse reaction s Active Rash 2020-07 00:00: 00 [facility] HYDROXYZ INE DRUG INGREDI Active Rash 2020-07 00:00: 00 [facility] Social History Social Habit Start Date Stop Date Quantity Comments Source Gender identity [facility] Social function 2024-03-05 00:00:00 2024-03-05 00:00:00 [facility] Exposure to SARS-CoV-2 (event) 2022-01-04 00:00:00 2022-01-14 10:13:00 Not sure [facility] Tobacco use and exposure 2022-01-01 00:00:00 2022-01-01 00:00:00 Smokeless tobacco non-user [facility] Education 2022-01-01 00:00:00 2022-01-01 00:00:00 13 [facility] Sex assigned at 2003 00:00:00 2005 00:00:00 [facility] Smoking Status Start Date Stop Date Source Unknown if ever smoked [facility] Never smoked tobacco [facility] Medications Ordered Medication Name Filled Medication Name Start Date Stop Date Current Medication? Ordering Clinician Indication Dosage Frequency Signature (SIG) Comments Components Source ondansetron 4 mg disintegrat ing tablet 04-02 00:00: 00 Yes [id number] 4mg Take 1 tablet by mouth every 8 (eight) hours as needed for Nausea and Vomiting (N/V). [facility] benzonatate 200 mg capsule 04-02 00:00: 00 Yes [id number] 200mg Take 1 capsule by mouth 3 (three) times daily as needed for Cough for up to 20 doses. [facility] ibuprofen 600 mg tablet 04-02 00:00: 00 Yes [id number] 600mg Take 1 tablet by mouth every 6 (six) hours as needed for Pain (scale 4-6). [facility] cefdinir 300 mg capsule 04-02 00:00: 00 04-13 04:59 :00 No [id number] 300mg Take 1 capsule by mouth every 12 (twelve) hours for 10 days. [facility] penicillin g benzathine (BICILLIN L-A) injection 1.2 Million Units 01-23 18:00: 00 01-23 17:58 :00 No 1.210 1.2 Million Units, Intramuscu lar, ONCE, 1 dose, On Ina 01/23/23 at 1300, ANTONI
Re ason for Anti-Infec tive: Empiric Therapy for Suspected Infection< br>Empiric Therapy Site: HEENT
D uration of therapy: 72 hours [facility] medroxyPROG ESTERone 10 mg tablet 01-09 00:00: 00 01-02 00:00 :00 No [id number] 100 20mg Take 2 tablets by mouth daily for 10 days. [facility] escitalopra m oxalate (LEXAPRO) 10 mg tablet 01-04 00:15: 02 Yes 10mg Take 10 mg by mouth daily. [facility] escitalopra m oxalate (LEXAPRO) tablet 10 mg 01-03 14:00: 00 Yes 10mg 10 mg, Oral, DAILY, First dose on Fri01/03/22 at 0900, Until Discontinu ed, Routine [facility] medroxyPROG ESTERone (CYCRIN) tablet 20 mg [...] Until Discontinu ed, Routine [Order 2 End] [facility] escitalopra m oxalate (LEXAPRO) 10 mg tablet 01-02 12:19: 03 Yes 10mg Take 10 mg by mouth daily. [facility] sertraline HCl (ZOLOFT ORAL) 01-02 10:31: 12 01-02 00:00 :00 No 50mg Take 50 mg by mouth daily. [facility] phentermine 37.5 mg tablet 01-02 10:31: 12 01-02 00:00 :00 No 37.5mg Take 37.5 mg by mouth daily with breakfast. [facility] acetaminoph en (TYLENOL) tablet 650 mg 01-02 03:30: 00 01-02 02:19 :00 No 650mg 650 mg, Oral, ONCE, 1 dose, On Fri01/01/22 at 2230, ANTONI [facility] NaCl 0.9% (NS) IV infusion 1,000 mL 01-02 03:15: 00 Yes 1000mL at 125 mL/hr, IV Infusion, CONTINUOUS , Starting on Fri01/01/22 at 2215, Until Discontinu ed, Routine [facility] ondansetron (ZOFRAN (PF)) injection 4 mg 01-02 03:07: 36 Yes 4mg 4 mg, Slow IV Push, Q6HPRN, Starting on Fri01/01/22 at 2207, Until Discontinu ed, Routine, Nausea and Vomiting (N/V) [facility] HYDROcodone -acetaminop hen (NORCO) 10-325 mg tablet 1 tablet 01-02 03:07: 34 Yes 1{tbl} 1 tablet, Oral, Q6HPRN, Starting on Fri01/01/22 at 2207, Until Discontinu ed, Routine, Pain (scale 7-10) [facility] traMADoL (ULTRAM) tablet 50 mg 01-02 03:07: 31 01-04 03:06 :31 No 50mg 50 mg, Oral, Q8HPRN, Starting on Fri01/01/22 at 220, Until Ina 01/03/22 at 2206, Routine, Pain (scale 4-6) [facility] acetaminoph en (TYLENOL) tablet 650 mg 01-02 03:07: 29 Yes 650mg 650 mg, Oral, Q6HPRN, Starting on Fri01/01/22 at 2206, Until Discontinu ed, Routine, Pain (scale 1-3) [facility] iopamidol (ISOVUE 370-500 mL) injection 70 mL 01-02 01:45: 00 01-02 00:31 :00 No [id number] 100 70mL 70 mL, Intravenou s, ONCE, 1 dose, On Fri01/01/22 at 2044, Routine [facility] medroxyPROG ESTERone 10 mg tablet 01-02 00:00: 00 01-10 04:59 :00 No [id number] 100 20mg Take 2 tablets by mouth 3 (three) times daily for 7 days. [facility] megestroL 40 mg tablet 01-01 00:00: 00 01-02 00:00 :00 No [id number] 100 Take by mouth Take one tablet twice a day for 7 days, then 1 tablet by mouth daily for 14 days. [facility] No known medications 2020-07 13:39: 35 No [facility] sertraline HCl (ZOLOFT ORAL) 2020-07 09:09: 46 Yes 50mg Take 50 mg by mouth daily. [facility] Immunizations Ordered Immunization Name Filled Immunization Name Date Status Comments Source SARS-COV-2 COVID-19 PFIZER VACCINE 2021-07-30 00:00:00 Completed [facility] SARS-COV-2 COVID-19 PFIZER VACCINE 2021-07-30 00:00:00 Completed [facility] SARS-COV-2 COVID-19 PFIZER VACCINE 2021-07-30 00:00:00 Completed [facility] SARS-COV-2 COVID-19 PFIZER VACCINE 2021-07-30 00:00:00 Completed [facility] SARS-COV-2 COVID-19 PFIZER VACCINE 2021-07-30 00:00:00 Completed [facility] SARS-COV-2 COVID-19 PFIZER VACCINE 2021-07-30 00:00:00 Completed [facility] SARS-COV-2 COVID-19 PFIZER VACCINE 2021-07-30 00:00:00 Completed [facility] SARS-COV-2 COVID-19 PFIZER VACCINE 2021-02-22 00:00:00 Completed [facility] SARS-COV-2 COVID-19 PFIZER VACCINE 2021-02-22 00:00:00 Completed [facility] SARS-COV-2 COVID-19 PFIZER VACCINE 2021-02-22 00:00:00 Completed [facility] SARS-COV-2 COVID-19 PFIZER VACCINE 2021-02-22 00:00:00 Completed [facility] SARS-COV-2 COVID-19 PFIZER VACCINE 2021-02-22 00:00:00 Completed [facility] SARS-COV-2 COVID-19 PFIZER VACCINE 2021-02-22 00:00:00 Completed [facility] SARS-COV-2 COVID-19 PFIZER VACCINE 2021-02-22 00:00:00 Completed [facility] Influenza Virus Vaccine Quad IM 3+ YRS 2017-05-20 00:00:00 Completed [facility] Influenza Virus Vaccine Quad IM 3+ YRS 2017-05-20 00:00:00 Completed [facility] Influenza Virus Vaccine Quad IM 3+ YRS 2017-05-20 00:00:00 Completed [facility] Influenza Virus Vaccine Quad IM 3+ YRS 2017-05-20 00:00:00 Completed [facility] Influenza Virus Vaccine Quad IM 3+ YRS 2017-05-20 00:00:00 Completed [facility] Influenza Virus Vaccine Quad IM 3+ YRS 2017-05-20 00:00:00 Completed [facility] Influenza Virus Vaccine Quad IM 3+ YRS 2017-05-20 00:00:00 Completed [facility] Influenza Virus Vaccine Quad IM 3+ YRS Unknown Completed [facility] SARS-COV-2 COVID-19 PFIZER VACCINE Unknown Completed [facility] Influenza Virus Vaccine Quad IM 3+ YRS Unknown Completed [facility] SARS-COV-2 COVID-19 PFIZER VACCINE Unknown Completed [facility] Vital Signs Vital Name Observation Time Observation Value Comments S ource Systolic blood pressure 2024-03-05 16:45:00 159 mm[Hg] General acute hospital Diastolic blood pressure 2024-03-05 16:45:00 130 mm[Hg] General acute hospital Heart rate 2024-03-05 16:45:00 96 /min [facility] Body temperature 2024-03-05 16:45:00 36.28 Jennifer [facility] Respiratory rate 2024-03-05 16:45:00 17 /min [facility] Body height 2024-03-05 16:45:00 165.1 cm [facility] Body weight 2024-03-05 16:45:00 113.399 kg [facility] BMI 2024-03-05 16:45:00 41.60 kg/m2 [facility] Oxygen saturation in Arterial blood by Pulse oximetry 2024-03-05 16:45:00 96 /min General acute hospital Systolic blood pressure 2023-06-12 20:38:00 150 mm[Hg] General acute hospital Diastolic blood pressure 2023-06-12 20:38:00 80 mm[Hg] General acute hospital Heart rate 2023-06-12 20:38:00 93 /min [facility] Body temperature 2023-06-12 20:38:00 37.22 Jennifer [facility] Respiratory rate 2023-06-12 20:38:00 18 /min [facility] Body height 2023-06-12 20:38:00 165.1 cm [facility] Body weight 2023-06-12 20:38:00 106.595 kg [facility] BMI 2023-06-12 20:38:00 39.11 kg/m2 [facility] Oxygen saturation in Arterial blood by Pulse oximetry 2023-06-12 20:38:00 100 /min General acute hospital Systolic blood pressure 2023-04-02 12:57:00 136 mm[Hg] General acute hospital Diastolic blood pressure 2023-04-02 12:57:00 91 mm[Hg] General acute hospital Heart rate 2023-04-02 12:57:00 93 /min [facility] Body temperature 2023-04-02 12:57:00 36.78 Jennifer [facility] Respiratory rate 2023-04-02 12:57:00 16 /min [facility] Body weight 2023-04-02 12:57:00 105.235 kg [facility] BMI 2023-04-02 12:57:00 38.61 kg/m2 [facility] Oxygen saturation in Arterial blood by Pulse oximetry 2023-04-02 12:57:00 100 /min General acute hospital Systolic blood pressure 2023-04-02 01:41:00 148 mm[Hg] General acute hospital Diastolic blood pressure 2023-04-02 01:41:00 96 mm[Hg] General acute hospital Heart rate 2023-04-02 01:41:00 97 /min [facility] Body temperature 2023-04-02 01:41:00 37.61 Jennifer [facility] Respiratory rate 2023-04-02 01:41:00 20 /min [facility] Body height 2023-04-02 01:41:00 165.1 cm [facility] Body weight 2023-04-02 01:41:00 105.416 kg [facility] BMI 2023-04-02 01:41:00 38.67 kg/m2 [facility] Oxygen saturation in Arterial blood by Pulse oximetry 2023-04-02 01:41:00 100 /min General acute hospital Systolic blood pressure 2023-01-23 15:56:00 142 mm[Hg] General acute hospital Diastolic blood pressure 2023-01-23 15:56:00 98 mm[Hg] General acute hospital Heart rate 2023-01-23 15:56:00 108 /min [facility] Body temperature 2023-01-23 15:56:00 37.06 Jennifer [facility] Respiratory rate 2023-01-23 15:56:00 18 /min [facility] Body height 2023-01-23 15:56:00 165.1 cm [facility] Body weight 2023-01-23 15:56:00 107.049 kg [facility] BMI 2023-01-23 15:56:00 39.27 kg/m2 [facility] Oxygen saturation in Arterial blood by Pulse oximetry 2023-01-23 15:56:00 99 /min General acute hospital Systolic blood pressure 2022-01-14 20:22:00 159 mm[Hg] General acute hospital Diastolic blood pressure 2022-01-14 20:22:00 99 mm[Hg] General acute hospital Heart rate 2022-01-14 20:22:00 111 /min [facility] Body temperature 2022-01-14 20:22:00 36.89 Jennifer [facility] Respiratory rate 2022-01-14 20:22:00 20 /min [facility] Body weight 2022-01-14 20:22:00 117.935 kg [facility] Oxygen saturation in Arterial blood by Pulse oximetry 2022-01-14 20:22:00 99 /min General acute hospital Heart rate 2022-01-02 12:36:00 95 /min [facility] Respiratory rate 2022-01-02 12:36:00 18 /min [facility] Oxygen saturation in Arterial blood by Pulse oximetry 2022-01-02 12:36:00 97 /min General acute hospital Systolic blood pressure 2022-01-02 12:21:00 126 mm[Hg] General acute hospital Diastolic blood pressure 2022-01-02 12:21:00 69 mm[Hg] General acute hospital Body temperature 2022-01-02 12:21:00 35.61 Jennifer [facility] Body weight 2022-01-02 08:12:00 129.094 kg [facility] BMI 2022-01-02 08:12:00 47.36 kg/m2 [facility] Body mass index (BMI) [Percentile] Per age and sex 2022-01-02 08:12:00 99.30 % General acute hospital Body height 2022-01-02 03:19:00 165.1 cm [facility] Systolic blood pressure 2021-06-18 15:06:00 139 mm[Hg] General acute hospital Diastolic blood pressure 2021-06-18 15:06:00 68 mm[Hg] General acute hospital Heart rate 2021-06-18 15:06:00 107 /min [facility] Body height 2021-06-18 15:06:00 166.8 cm [facility] Body weight 2021-06-18 15:06:00 120.2 kg [facility] BMI 2021-06-18 15:06:00 43.20 kg/m2 [facility] Body mass index (BMI) [Percentile] Per age and sex 2021-06-18 15:06:00 99.15 % General acute hospital Procedures Procedure Date / Time Performed Performing Clinician Source CONSENT/REFUSAL FOR DIAGNOSIS AND TREATMENT 2023-06-12 20:29:28 Doctor Unassigned, [place] [facility] ASSIGNMENT OF BENEFITS 2023-04-02 14:21:38 Docto r Unassigned, [place] [facility] POCT TEST 2023-04-02 13:31:00 Jonel Brennan [facility] URINALYSIS 2023-04-02 13:30:00 Jonel Brennan [facility] RAPID INFLUENZA A/B 2023-04-02 13:30:00 Jonel Brennan [facility] COVID-19 (ID NOW RAPID TESTING) 2023-04-02 13:30:00 Jonel Brennan [facility] CONSENT/REFUSAL FOR DIAGNOSIS AND TREATMENT 2023-04-02 12:52:27 Doctor Unassigned, [place] [facility] NOTICE OF PRIVACY PRACTICES 2023-04-02 01:19:44 Doctor Unassigned, [place] [facility] CONSENT/REFUSAL FOR DIAGNOSIS AND TREATMENT 2023-04-02 01:18:55 Doctor Unassigned, [place] [facility] RAPID STREP SCREEN FOR GROUP A 2023-01-23 16:23:00 Armida Dominguez [facility] ASSIGNMENT OF BENEFITS 2023-01-23 16:13:09 Docto r Unassigned, [place] [facility] CONSENT/REFUSAL FOR DIAGNOSIS AND TREATMENT 2023-01-23 15:52:18 Doctor Unassigned, [place] [facility] CONSENT/REFUSAL FOR DIAGNOSIS AND TREATMENT 2022-01-14 20:40:13 Doctor Unassigned, [place] [facility] CONSENT/REFUSAL FOR DIAGNOSIS AND TREATMENT 2022-01-14 14:50:08 Doctor Unassigned, [place] [facility] ASSIGNMENT OF BENEFITS 2022-01-14 14:49:53 Docto r Unassigned, [place] [facility] BASIC METABOLIC PANEL (NA, K, CL, CO2, GLUCOSE, BUN, CREATININE, CA) 2022-01-02 08:18:00 Rafaela Rooney [facility] CBC WITH DIFF 2022-01-02 08:18:00 Rafaela Rooney [facility] CT ABDOMEN PELVIS WO CONTRAST 2022-01-02 01:17:00 Star Vigil [facility] CT CHEST PULMONARY ANGIOGRAM 2022-01-02 00:38:00 Star Vigil [facility] US PELVIS COMPLETE WITH TRANSVAGINAL 2022-01-01 23:43:36 Lynda Pitts [facility] POCT TEST 2022-01-01 22:53:00 Dipak Pitts [facility] COMP. METABOLIC PANEL ([id number]) 2022-01-01 22:50:00 Lynda Pitts [facility] CBC WITH DIFF 2022-01-01 22:50:00 Lynda Pitts [facility] URINALYSIS 2022-01-01 22:50:00 [facility] COVID-[facility] (ID NOW RAPID TESTING) 2022-01-01 22:50:00 Lynda Pitts [facility] CONSENT/REFUSAL FOR DIAGNOSIS AND TREATMENT 2022-01-01 22:17:00 Doctor Unassigned, [place] [facility] EXTERNAL PROVIDER RECORDS 2021-07-02 06:01:00 Doctor Unassigned, [place] [facility] SCANNED LAB RESULTS 2021-04-30 05:01:00 Doctor Maria Elena frankgnconrad, [place] [facility] Encounters Start Date/Time End Date/Time Encounter Type Admission Type Attending [facility] Care Facility Care Department Encounter ID Source 2024-03-05 11:50:00 2024-03-05 12:13:00 Emergency ARMIDA ACEVEDO SANDRA [facility] ERT [id number] [facility] 2024-03-05 11:50:00 2024-03-05 12:13:00 Emergency Armida Dominguez [facility] 1..840.114 350.1.13.10 4.2.7.2.686 [id number] [facility] 2023-06-12 14:39:00 2023-06-12 16:14:00 Emergency AMERICO ARIAS [facility] ERT [id number] [facility] 2023-06-12 14:39:00 2023-06-12 16:14:00 Emergency mAerico Nicole [facility] ..840.114 350.1.13.10 4.2.7.2.686 [id number] [facility] 2023-05-28 00:00:00 2023-05-28 00:00:00 Outpatient GC_GCBZW_Ka brenda_Yossi [facility] [id number] [facility] 2023-04-02 07:59:00 2023-04-02 09:31:00 Emergency X Jonel BRENNAN [facility] ERT [id number] [facility] 2023-04-02 07:59:00 2023-04-02 09:31:00 Emergency Jonel Brennan Kailey [facility] 1.2.840.114 350.1.13.10 4.2.7.2.686 [id number] [facility] 2023-04-01 20:43:00 2023-04-01 22:39:00 Emergency Brianda Berry [facility] 1.2.840.114 350.1.13.10 4.2.7.2.686 [id number] [facility] 2023-04-01 20:43:00 2023-04-01 22:39:00 Emergency X BRIANDA BERRY [facility] ERT [id number] [facility] 2023-01-23 10:58:00 2023-01-23 13:08:00 Emergency X ARMIDA DOMINGUEZ [facility] ERT [id number] [facility] 2023-01-23 10:58:00 2023-01-23 13:08:00 Emergency Armida Dominguez [facility] 1.2.840.114 350.1.13.10 4.2.7.2.686 [id number] [facility] 2022-01-14 15:26:00 2022-01-14 16:52:00 Emergency X CLARE VAZQUEZ [facility] ERT [id number] [facility] 2022-01-14 15:26:00 2022-01-14 16:52:00 Emergency Vazquez, Clare [facility] 1..114 350.1.13.10 4.2.7.2.686 [id number] [facility] 2022-01-14 12:00:00 2022-01-14 12:15:00 Dinkey Operator Slag Visit Pob, Adc Lab Main Angelo Duncan [facility] 1.114 350.1.13.10 4.2.7.2.686 [id number] [facility] 2022-01-14 12:00:00 2022-01-14 12:00:00 Outpatient R [facility] [id number] [facility] 2022-01-14 00:00:00 2022-01-14 00:00:00 Orders Only Doctor Unassigned, [place] [facility] 1.114 350.1.13.10 4.2.7.2.686 [id number] [facility] 2022-01-01 17:22:00 2022-01-02 12:15:00 Outpatient X ZULMA [facility] [id number] [facility] 2022-01-01 17:22:00 2022-01-02 12:15:00 Emergency [facility] 1.114 350.1.13.10 4.2.7.2.686 [id number] [facility] 2021-07-02 00:00:00 2021-07-02 00:00:00 Orders Only Doctor Unassigned, [place] [facility] 1..114 350.1.13.10 4.2.7.2.686 [id number] [facility] 2021-06-18 08:56:35 2021-06-18 09:16:35 Office Visit Lynda Norman [facility] 1.2.840.114 350.1.13.10 4.2.7.2.686 [id number] [facility] 2021-06-18 09:10:00 2021-06-18 09:10:00 Outpatient LYNDA MARIO [facility] [id number] [facility] 2021-06-18 00:00:00 2021-06-18 00:00:00 Orders Only Doctor Unassigned, [place] [facility] 1.2840.114 350.1.13.10 4.2.7.2.686 [id number] [facility] 2021-04-30 00:00:00 2021-04-30 00:00:00 Orders Only Doctor Unassigned, [place] [facility] 1.2.840.114 350.1.13.10 4.2.7.2.686 [id number] [facility] Results Test Description Test Time Test Comments Results Result Co mments [facility] (NA, K, CL, CO2, GLUCOSE, BUN, CREATININE, CA)2022-01-02 09:17:29* Test Item Value Reference Range Interpretation Comme nts NA (test code = 8537483235) 139 mmol/L 135-145 K (test code = 0018157769) 3.5 mmol/L 3.5-5.0 CL (test code = 3551730083) 105 mmol/L 98-108 CO2 TOTAL (test code = 0289786126) 26 mmol/L 23-31 AGAP (test code = 5984555044) 2-16 BUN (test code = 3110385109) 7 mg/dL 7-23 GLUCOSE (test code = 9837659464) 130 mg/dL 70-110 H CREATININE (test code = 9709072697) 0.72 mg/dL 0.50-1.04 CALCIUM (test code = 3636952972) 8.9 mg/dL 8.6-10.6 eGFR (test code = 2915333977) mL/min/1.73m2 LILIANA (test code = LILIANA) Association [...] imaging tests). Lab Interpretation (test code = 67031-2) Abnormal [facility] with [id number] 09:02:06* Test Item Value Reference Range Interpretation Comme nts WBC (test code = 6690-2) See_Comment [Automated [employer]] The system which generated this result transmitted reference range: 4.50 - 13.50 10*3/?L. The reference range was not used to interpret this result as normal/abnormal. RBC (test code = 789-8) See_Comment L [Automated [employer]] The system which generated this result transmitted [...] 32.8 g/dL 32.0-36.0 RDW-SD (test code = 41891-2) 42.3 fL 38.5-49.0 RDW-CV (test code = 788-0) 13.6 % 11.5-14.0 PLT (test code = 777-3) See_Comment [Automated messa ge] The system which generated this result transmitted reference range: 135 - 361 10*3/?L. The reference range was not used to interpret this result as normal/abnormal. MPV (test code = 84223-6) 11.0 fL 9.4-13.3 NRBC/100 WBC (test code = 8319990944) See_Comment [Automated [employer] ssage] The system which generated this result transmitted reference range: 0.0 - 10.0 /100 WBCs. The reference range was not used to interpret this result as normal/abnormal. NRBC x10^3 (test code = 2203602224) <0.01 See_Comment [Automated messa ge] The system which generated this result transmitted reference range: 10*3/?L. The reference range was not used to interpret this result as normal/abnormal. GRAN MAT (NEUT) % (test code = 770-8) 52.2 % IMM GRAN % (test code = 9977292334) 0.40 % LYMPH % (test code = 736-9) 38.6 % MONO % (test code = 5905-5) 6.4 % EOS % (test code = 713-8) 1.8 % BASO % (test code = 706-2) 0.6 % GRAN MAT x10^3(ANC) (test code = 2193650497) 4.14 10*3/uL 1.50-10.30 IMM GRAN x10^3 (test code = 9768147700) 0.03 10*3/uL 0.00-0.06 LYMPH x10^3 (test code = 731-0) 3.06 10*3/uL 0.70-7.40 MONO x10^3 (test code = 742-7) 0.51 10*3/uL 0.00-0.50 H EOS x10^3 (test code = 711-2) 0.14 10*3/uL 0.00-0.40 BASO x10^3 (test code = 704-7) 0.05 10*3/uL 0.00-0.10 Lab Interpretation (test code = 74956-8) Abnormal [facility]. METABOLIC PANEL (84610)2022-01-01 23:36:03* Test Item Value Reference Range Interpretation Comme nts NA (test code = 8224533009) 137 mmol/L 135-145 K (test code = 0894414067) 3.7 mmol/L 3.5-5.0 CL (test code = 6331368750) 103 mmol/L 98-108 CO2 TOTAL (test code = 3249345649) 23 mmol/L 23-31 AGAP (test code = 9769875524) 2-16 BUN (test code = 7913694823) 7 mg/dL 7-23 GLUCOSE (test code = 6334780642) 147 mg/dL 70-110 H CREATININE (test code = 6238730053) 0.74 mg/dL 0.50-1.04 TOTAL BILI (test code = 9032988920) 0.6 mg/dL 0.1-1.1 CALCIUM (test code = 6583436498) 9.3 mg/dL 8.6-10.6 T PROTEIN (test code = 9643609236) 7.3 g/dL 6.3-8.2 ALBUMIN (test code = 8867093722) 4.4 g/dL 3.5-5.0 ALK PHOS (test code = 8450021726) 80 U/L 34-122 ALTv (test code = 1742-6) 19 U/L 5-35 AST(SGOT) (test code = 4317058603) 23 U/L 13-40 eGFR (test code = 7976982109) mL/min/1.73m2 LILIANA (test code = LILIANA) Association [...] imaging tests). Lab Interpretation (test code = 57477-0) Abnormal [facility] WITH [id number] 23:15:57* Test Item Value Reference Range Interpretation Comme nts WBC (test code = 6690-2) See_Comment [Automated [employer]] The system which generated this result transmitted reference range: 4.50 - 13.50 10*3/?L. The reference range was not used to interpret this result as normal/abnormal. RBC (test code = 789-8) See_Comment L [Automated [employer]] The system which generated this result transmitted [...] 33.2 g/dL 32.0-36.0 RDW-SD (test code = 83238-9) 41.6 fL 38.5-49.0 RDW-CV (test code = 788-0) 13.6 % 11.5-14.0 PLT (test code = 777-3) See_Comment [Automated Acesisa ge] The system which generated this result transmitted reference range: 135 - 361 10*3/?L. The reference range was not used to interpret this result as normal/abnormal. MPV (test code = 35427-8) 10.8 fL 9.4-13.3 NRBC/100 WBC (test code = 1324866121) See_Comment [Automated [employer] ssage] The system which generated this result transmitted reference range: 0.0 - 10.0 /100 WBCs. The reference range was not used to interpret this result as normal/abnormal. NRBC x10^3 (test code = 4647877402) <0.01 See_Comment [Automated Acesisa ge] The system which generated this result transmitted reference range: 10*3/?L. The reference range was not used to interpret this result as normal/abnormal. GRAN MAT (NEUT) % (test code = 770-8) 67.9 % IMM GRAN % (test code = 7934088146) 0.40 % LYMPH % (test code = 736-9) 25.9 % MONO % (test code = 5905-5) 4.1 % EOS % (test code = 713-8) 1.1 % BASO % (test code = 706-2) 0.6 % GRAN MAT x10^3(ANC) (test code = 8000038210) 6.14 10*3/uL 1.50-10.30 IMM GRAN x10^3 (test code = 8919577000) 0.04 10*3/uL 0.00-0.06 LYMPH x10^3 (test code = 731-0) 2.34 10*3/uL 0.70-7.40 MONO x10^3 (test code = 742-7) 0.37 10*3/uL 0.00-0.50 EOS x10^3 (test code = 711-2) 0.10 10*3/uL 0.00-0.40 BASO x10^3 (test code = 704-7) 0.05 10*3/uL 0.00-0.10 Lab Interpretation (test code = 56464-8) [id number]:53:00* Test Item Value Reference Range Interpretation Comme nts POCT PREG (test code = 1605) negative On board controls acceptable with C Line (test code = 3574) present POCT PREG LOT # (test code = 3575) [id number] POCT PREG TEST DATE ( test code = 3576) 04/26/2023 Lab Interpretation (test cod e = 11747-8) Normal [facility]"
[2024-07-13 09:34] LABS: SARS-CoV-2 Antigen CONTROL BLUE LINE VIS/BG OK; SARS-CoV-2 Antigen Rapid Res Negative (Negative)
--- NOTE | 2024-07-13 09:48 | RAD REPORT ---
EXAMINATION: ONE VIEW CHEST XR CLINICAL INDICATION: COUGH TECHNIQUE: Frontal chest projection is submitted. Examination is limited by patient positioning and t echnique. COMPARISON: No prior exam. FINDINGS: Mild left lower lobe and medial left base infiltrate pattern suspected to represent early pneumonia. The lungs are otherwise clear. The heart is normal in size. No displaced fractures identified. IMPRESSION: Mild infiltrate pattern in the left base medially suggesting developing pneumonia.
[2024-07-13] MEDS ORDERED: levoFLOXacin 250 MG TAB ONE (10:07)
--- NOTE | 2024-07-13 10:13 | ER ---
Nurse's Notes [facility] Name: Nasra Hadley Age: 18 yrs Sex: Female : 2005 Arrival Date: 07/13/2024 Time: 08:46 Bed 20 Private MD: Diagnosis: Pneumonia, unspecified organism Presentation: 07/13 09:09 Chief complaint: Patient states: she has been having cough, fevers and feeling foggy ap3 for approx 2 days now. patient reports taking Tylenol and motrin for fevers, last dose was at 0500 this morning. patient currently rates her pain as a 4/10 on the pain scale. Coronavirus screen: Client presents with at least one sign or symptom that may indicate coronavirus-19. Ebola Screen: No symptoms or risks identified at this time. Initial Sepsis Screen: Does the patient meet any 2 criteria? HR > 90 bpm. Does the patient have a suspected source of infection? No. Patient's initial sepsis screen is negative. Risk Assessment: Do you want to hurt yourself or someone else? Patient reports no desire to harm self or others. Onset of symptoms was July 11, 2024. 09:09 Method Of Arrival: Ambulatory ap3 09:09 Acuity: LINDA 4 ap3 Triage Assessment: 09:12 General: Appears ill, Behavior is calm, cooperative, appropriate for age. Pain: ap3 Complains of pain in generalized body aches. Neuro: Level of Consciousness is awake, alert, obeys commands, Oriented to person, place, time, situation, Appropriate for age. Cardiovascular: Patient's skin is warm and dry. Respiratory: Reports cough that is Airway is patent Respiratory effort is even, unlabored, Respiratory pattern is regular, symmetrical, Onset: The symptoms/episode began/occurred gradually, the patient has mild shortness of breath. 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 - Infectious Disease History:: Denies. - Social history:: Smoking status: Patient denies any tobacco usage or history of. - Family history:: not pertinent. - Hospitalizations: : No recent hospitalization is reported. Screenin:13 [facility] ED Fall Risk Assessment (Adult) History of falling in the last 3 months, ap3 including since admission No falls in past 3 months (0 pts) Confusion or Disorientation No (0 pts) Intoxicated or Sedated No (0 pts) Impaired Gait No (0 pts) Mobility Assist Device Used No (0 pt) Altered Elimination No (0 pt) Score/Fall Risk Level 0 - 2 = Low Risk Oriented to surroundings, Maintained a safe environment, Educated pt \T\ family on fall prevention, incl call for assistance when getting out of bed, Assessed \T\ reinforced patient's understanding of fall precautions, Hourly rounding (assess needs \T\ fall precautionary measures) done, Used ambulatory aids as needed (educated on \T\ assisted with), Used gait belt as appropriate. Abuse screen: Denies threats or abuse. Nutritional screening: No deficits noted. Tuberculosis screening: No symptoms or risk factors identified. Assessment: 10:18 Respiratory: Airway Respiratory effort is even, unlabored, Respiratory pattern is ap3 regular, symmetrical, 10:18 Cardiovascular: Rhythm is regular. ap3 Vital Signs: 09:09 BP 126 / 54; Pulse 106; Resp 18; Temp 98.8(O); Pulse Ox 98% on R/A; Weight 113.4 kg; ap3 Height 5 ft. 5 in. ; Pain 4/10; 09:09 Body Mass Index 41.60 (113.40 kg, 165.1 cm) ap3 09:09 Pain Scale: Adult ap3 ED Course: 08:48 Patient arrived in ED. ra3 08:58 Mitch Cowan MD is Attending Physician. rn 09:09 Millicent Chase RN is Primary Nurse. ap3 09:12 Triage completed. ap3 09:13 Arm band placed on right wrist. ap3 09:13 Patient has correct armband on for positive identification. Provided Education on: fall ap3 risk education. 09:22 COVID swab sent to lab. Strep swab sent to lab. ap3 09:22 SARS-COV-2 Antigen Rapid Sent. ap3 09:22 Strep Sent. ap3 09:38 XRAY Chest (1 view) In Process Unspecified. EDMS 10:18 No provider procedures requiring assistance completed. Patient did not have IV access ap3 during this emergency room visit. Administered Medications: 10:08 Drug: LevOfloxacin PO 500 mg PO once Route: PO; ap3 10:18 Follow up: Response: No adverse reaction ap3 Medication: 09:14 VIS not applicable for this client. ap3 Outcome: 10:13 Discharge ordered by . rn 10: Discharged to home ambulatory, ap3 10: Condition: good 10:19 Discharge instructions given to patient, Instructed on discharge instructions, follow up and referral plans. Demonstrated understanding of instructions, follow-up care, medications, Prescriptions given X 1, 10:27 Patient left the ED. ap3 Signatures: Dispatcher [employer] EDMS Mitch Cowan MD MD rn Prokisch, Amanda, RN RN ap3 Shayy Alcala ra3
--- NOTE | 2024-07-13 10:13 | EDPHYS ---
Physician Documentation [facility] Name: Nasra Hadley Age: 18 yrs Sex: Female : 2005 Arrival Date: 07/13/2024 Time: 08:46 Bed 20 Private MD: ED Physician Mitch Cowan HPI: 07/13 09:43 This 18 yrs old Female presents to ER via Ambulatory with complaints of Breathing rn Difficulty, Chest Pain, Cough. 09:43 Onset: The symptoms/episode began/occurred 2 day(s) ago. Severity of symptoms: At their rn worst the symptoms were mild, in the emergency department the symptoms are unchanged. Associated signs and symptoms: Pertinent positives: fever, rhinorrhea, sore throat. The patient has experienced similar episodes in the past. Patient reports cough, mild shortness of breath, fever and chills with myalgias and malaise for 2 days now. Reports got over flu 3 weeks ago. No smoking or vaping. No hemoptysis. No known sick contacts.. 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 - Infectious Disease History:: Denies. - Social history:: Smoking status: Patient denies any tobacco usage or history of. - Family history:: not pertinent. - Hospitalizations: : No recent hospitalization is reported. ROS: 09:43 Constitutional: Positive for fever and chills ENT: Positive for nasal drainage and sore rn throat Neck: Negative for injury, pain, and swelling, Cardiovascular: Negative for chest pain, palpitations, and edema, Respiratory: Positive for cough and mild shortness of breath MS/Extremity: Negative for injury and deformity, Skin: Negative for rash Neuro: Positive for headache and generalized weakness with malaise Exam: 09:43 Constitutional: This is a well developed, well nourished patient who is awake, alert, rn and in no acute distress. Ambulatory to room without difficulty or assistance ENT: Moist mucous membranes, no stridor, uvula midline Neck: No meningismus or tender cervical lymphadenopathy Cardiovascular: Tachycardic, regular. Respiratory: Clear bilateral breath sounds, no retractions, no wheezing Vital Signs: 09:09 BP 126 / 54; Pulse 106; Resp 18; Temp 98.8(O); Pulse Ox 98% on R/A; Weight 113.4 kg; ap3 Height 5 ft. 5 in. ; Pain 4/10; 09:09 Body Mass Index 41.60 (113.40 kg, 165.1 cm) ap3 09:09 Pain Scale: Adult ap3 MDM: 08:59 Medical Screening Exam initiated rn 10:12 Differential Diagnosis: Bronchitis Influenza Upper Respiratory Infection Viral Syndrome rn Pneumonia. Data reviewed: vital signs, nurses notes, lab test result(s), radiologic studies, plain films, and as a result, I will discharge patient. Counseling: I had a detailed discussion with the patient and/or guardian regarding the historical points, exam findings, and any diagnostic results supporting the discharge/admit diagnosis, lab results, radiology results, the need for outpatient follow up, to return to the emergency department if symptoms worsen or persist or if there are any questions or concerns that arise at home. Special discussion: I discussed with the patient/guardian in detail that at this point there is no indication for admission to the hospital. It is understood, however, that if the symptoms persist or worsen the patient needs to return immediately for re-evaluation. 07/13 09:05 Order name: Strep rn 07/13 09:05 Order name: SARS-COV-2 Antigen Rapid; Complete Time: 10:00 rn 07/13 09:37 Order name: Throat Culture EDMS 07/13 09:05 Order name: XRAY Chest (1 view); Complete Time: 10:00 rn Administered Medications: 10:08 Drug: LevOfloxacin PO 500 mg PO once Route: PO; ap3 10:18 Follow up: Response: No adverse reaction ap3 Disposition Summary: 07/13/24 10:13 Discharge Ordered Notes: Location: Home rn Problem: new rn Symptoms: have improved rn Condition: Stable rn Diagnosis - Pneumonia, unspecified organism rn Followup: rn - With: Private Physician - When: As needed - Reason: Recheck today's complaints, Re-evaluation by your physician Discharge Instructions: - Discharge Summary Sheet rn - Community-Acquired Pneumonia, Adult rn Forms: - Medication Reconciliation Form rn - Antibiotic spring internship - Prescription Opioid Use rn - Patient Portal Instructions rn - Leadership Thank You Letter rn - Work release form ap3 Prescriptions: - levofloxacin 500 mg Oral tablet - take 1 tablet ORAL route once daily for 7 days; 7 tablet; Refills: 0, Product rn Selection Permitted Signatures: Dispatcher [employer] EDMitch Carter MD MD rn Prokisch, Amanda, RN RN ap3 Corrections: (The following items were deleted from the chart) 09: 09:06 Group A Streptococcus Rapid Sc+BA.LAB.BRZ ordered. EDMS EDMS 09:06 09:06 SARS-COV-2 Antigen Rapid+I.LAB.BRZ ordered. EDMS EDMS
[2024-07-13 10:43] VITALS: BP 126/54; TEMP 98.8; O2SAT 98
== END 2024-07-13 10:27 | disposition home or self-care (01) ==
LOC: ER 08:46
DX: J18.9 Pneumonia, unspecified organism (principal); Z11.52 Encounter for screening for COVID-19
CPT/HCPCS: 36415; 71045; 87070; 87081; 87811; 99283

== ENCOUNTER 2025-03-04 17:48 | Emergency (ER) | payer BC ==
[2025-03-04 18:30] LABS: Absolute Lymphocytes (CBC) 2.5 K/uL (0.7-4.9); Hematocrit 37.2 % (36.0-45.0); Hemoglobin 12.4 g/dL (12.0-15.0); MCH 26.9 pg (27.0-35.0); MCHC 33.3 g/dL (32.0-36.0); MCV 80.7 fL (80-100); MPV 8.6 fL (7.6-11.3); Nucleated RBC Absolute Count 0.0 (0-0); Nucleated Red Blood Cells % 0.1 % (0-0); RBC Red Blood Cell Count 4.60 M/uL (3.86-4.86); White Blood Count 9.50 thou/uL (4.3-10.9)
[2025-03-04 18:35] LABS: Sqamous Epithelial <5 /HPF (None Seen); Urine Crystals Unidentified Few /HPF (None Seen); Urine Culture Reflex Order REFLEXED; Urine Microscopic Reflex YN ORDER UMIC; Urine WBC Clump Rare /HPF (None Seen); Urine Yeast (Budding) Trace /HPF (None Seen)
[2025-03-04 18:45] LABS: Anion Gap 8.6 mEq/L (5.0-15.0); BUN Blood Urea Nitrogen 9.0 mg/dL (7-18); Glucose Level 141.0 mg/dL (74-106); Potassium 3.6 mEq/L (3.5-5.1)
--- NOTE | 2025-03-04 19:40 | RAD REPORT ---
EXAMINATION: US PELVIS TRANSABDOMINAL WITH DOPPLER CLINICAL INDICATION: Abd pain;Vaginal bleeding TECHNIQUE: Real-time ultrasonography of the pelvis was performed transabdominally. Color and spectral Doppler evaluation of the ovaries was performed. COMPARISON: No prior exam. FINDINGS: UTERUS AND CERVIX: The uterus measures 6.6 x 3.9 x 3.6 cm (cervix to fundus x AP x transverse). The u terus is normal. No masses seen The endometrium is normal,6 mm in thickness. IUD difficult to visualize. Neither ovary is visible. FREE FLUID: No free fluid. ADDITIONAL FINDINGS: IMPRESSION: IUD difficult to visualize. Transvaginal assessment was refused. Neither ovary well seen due to bowel gas.
--- NOTE | 2025-03-04 20:05 | EDPHYS ---
Physician Documentation [facility] Name: Nasra Hadley Age: 19 yrs Sex: Female : 2005 Arrival Date: 03/04/2025 Time: 17:48 Bed 17 Private MD: ED Physician Yordy Barrios HPI: 03/04 17:53 This 19 yrs old Female presents to ER via Unassigned with complaints of HEAVY BLEEDING. kb 17:53 Pt is a 19 year old female who presents for heavy vaginal bleeding that started this kb morning. States she had an IUD placed about a year ago and her periods have been getting heavier and more painful since then. Reports suprapubic cramping.. Historical: - Allergies: 18:03 Hydroxyzine; bp - PMHx: 18:03 depressive disorder; bp - Immunization history:: Adult Immunizations up to date. - Infectious Disease History:: Denies. - Social history:: Smoking status: unknown. ROS: 20:09 Constitutional: As per HPI kb Exam: 20:09 Constitutional: This is a well developed, well nourished patient who is awake, alert, kb and in no acute distress. Head/Face: Normocephalic, atraumatic. ENT: Moist Mucous membranes Cardiovascular: Regular rate Respiratory: Respirations even and unlabored. No increased work of breathing. Talking in full sentences Abdomen/GI: Soft, non-tender. No distention Skin: Warm, dry with normal turgor. Normal color. MS/ Extremity: Pulses equal, no cyanosis. Neurovascular intact. Full, normal range of motion. Neuro: Awake and alert, GCS 15, oriented to person, place, time, and situation. Vital Signs: 18:02 BP 174 / 89; Pulse 96; Resp 20; Temp 98.5; Pulse Ox 100% ; Weight 113.4 kg; Height 5 bp ft. 5 in. ; 18:15 BP 167 / 98; Pulse 95; Resp 17; Pulse Ox 100% ; me1 19:30 BP 114 / 84; Pulse 97; Resp 17 S; Pulse Ox 99% on R/A; ss12 18:02 Body Mass Index 41.60 (113.40 kg, 165.1 cm) bp MDM: 17:52 Medical Screening Exam initiated kb 20:10 Differential diagnosis: anemia, menstrual cycle, uti, displaced IUD. Data reviewed: kb vital signs, nurses notes. Counseling: I had a detailed discussion with the patient and/or guardian regarding the historical points, exam findings, and any diagnostic results supporting the discharge/admit diagnosis, lab results, radiology results, the need for outpatient follow up, an OB/Gyne specialist, to return to the emergency department if symptoms worsen or persist or if there are any questions or concerns that arise at home. 03/04 17:55 Order name: Basic Metabolic Panel; Complete Time: 18:46 kb 03/04 17:55 Order name: CBC with Diff; Complete Time: 18:36 kb 03/04 17:55 Order name: Test, Urine; Complete Time: 19:16 kb 03/04 17:55 Order name: UA Rfx Jong Cult if indicated; Complete Time: 19:16 kb 03/04 19:16 Order name: Urine Culture; Complete Time: 08:20 EDMS 03/04 19:11 Order name: Pelvis Complete; Complete Time: 19:53 EDMS 03/04 17:55 Order name: IV Saline Lock; Complete Time: 18:21 kb 03/04 17:55 Order name: Labs collected and sent; Complete Time: 18:21 kb 03/04 17:55 Order name: NPO; Complete Time: 18:10 kb Administered Medications: 20:15 Drug: Ketorolac IVP 15 mg IVP once Route: IVP; Site: left antecubital; ss12 20:21 Follow up: Response: No adverse reaction; Pain is decreased ss12 Disposition Summary: 03/04/25 20:04 Discharge Ordered Notes: Location: Home kb Condition: Stable kb Diagnosis - Dysmenorrhea, unspecified kb Followup: kb - With: Emergency Department - When: As needed - Reason: Worsening of condition Followup: kb - With: Private Physician - When: 2 - 3 days - Reason: Recheck today's complaints, Continuance of care, Re-evaluation by your physician Discharge Instructions: - Discharge Summary Sheet kb - Dysmenorrhea, [id number] kb Forms: - Medication Reconciliation Form kb - Antibiotic Education kb - Prescription Opioid Use kb - Patient Portal Instructions kb - Leadership Thank You Letter kb Signatures: Dispatcher MedJefferson Abington HospitalJane Menendez, PARVEZ-C Benja Ma RN RN Enedina Calderon PA-C PAMariel sb4 Shannan Campbell RN RN ss12 Corrections: (The following items were deleted from the chart) 17: 17:55 BASIC METABOLIC PANEL+C.LAB.BRZ ordered. EDMS EDMS 17: 17:55 CBC+H.LAB.BRZ ordered. EDMS EDMS 17: 17:55 Test, Urine+UC.LAB.BRZ ordered. EDMS EDMS 17: 17:55 UA Rfx Jong Cult if indicated+U.LAB.BRZ ordered. EDMS EDMS 17: 17:55 Transvaginal Study (Probe)+US.RAD.BRZ ordered. EDMS EDMS 20:04 20:04 Abnormal uterine and vaginal bleeding, unspecified kb kb 20:10 17:53 Pt is a 19 year old female who presents for heavy vaginal bleeding that started kb this morning. . kb
--- NOTE | 2025-03-04 20:05 | ER ---
Nurse's Notes [facility] Name: Nasra Hadley Age: 19 yrs Sex: Female : 2005 Arrival Date: 03/04/2025 Time: 17:48 Bed 17 Private MD: Diagnosis: Dysmenorrhea, unspecified Presentation: 03/04 18:02 Chief complaint: Patient states: HEAVY PERIOD SINCE THIS MORNING. Coronavirus screen: bp At this time, the client does not indicate any symptoms associated with coronavirus-19. Ebola Screen: No symptoms or risks identified at this time. Initial Sepsis Screen: Does the patient meet any 2 criteria? No. Patient's initial sepsis screen is negative. Does the patient have a suspected source of infection? No. Patient's initial sepsis screen is negative. Risk Assessment: Do you want to hurt yourself or someone else? Patient reports no desire to harm self or others. Onset of symptoms was March 04, 2025. 18:02 Method Of Arrival: Ambulatory bp 18:02 Acuity: LINDA 3 bp 18:03 Note IUD PLACED 1 MONTH AGO. bp Historical: - Allergies: 18:03 Hydroxyzine; bp - PMHx: 18:03 depressive disorder; bp - Immunization history:: Adult Immunizations up to date. - Infectious Disease History:: Denies. - Social history:: Smoking status: unknown. Screenin:13 [facility] ED Fall Risk Assessment (Adult) History of falling in the last 3 months, me1 including since admission No falls in past 3 months (0 pts) Confusion or Disorientation No (0 pts) Intoxicated or Sedated No (0 pts) Impaired Gait No (0 pts) Mobility Assist Device Used No (0 pt) Altered Elimination No (0 pt) Score/Fall Risk Level 0 - 2 = Low Risk Maintained a safe environment, Provided non-skid footwear, Hourly rounding (assess needs \T\ fall precautionary measures) done. Abuse screen: Denies threats or abuse. Nutritional screening: No deficits noted. Tuberculosis screening: No symptoms or risk factors identified. Assessment: 18:13 General: Appears uncomfortable, well groomed, well developed, well nourished, Behavior me1 is calm, cooperative, appropriate for age, Reports heavy bleeding, started her period today. Pain: Complains of pain in right lower quadrant and left lower quadrant Pain does not radiate. Pain currently is 5 out of 10 on a pain scale. Quality of pain is described as crampy, stabbing, Pain began gradually, Is continuous. Neuro: Level of Consciousness is awake, alert, obeys commands, Oriented to person, place, time, situation, Appropriate for age. Cardiovascular: Patient's skin is warm and dry. Respiratory: Airway is patent Respiratory effort is even, unlabored, Respiratory pattern is regular, symmetrical. GI: Reports lower abdominal pain, cramping. : Reports cramping, in bilateral lower quadrant(s) vaginal bleeding that is heavy flow since this morning. EENT: No signs and/or symptoms were reported regarding the EENT system. Derm: Skin is intact, is healthy with good turgor, Skin is pink, warm \T\ dry. Musculoskeletal: No signs and/or symptoms reported regarding the musculoskeletal system. 19:30 Reassessment: Patient appears in no apparent distress at this time. Patient and/or ss12 family updated on plan of care and expected duration. Pain level reassessed. Patient is alert, oriented x 3, equal unlabored respirations, skin warm/dry/pink. 20:21 Reassessment: Patient appears in no apparent distress at this time. Patient and/or ss12 family updated on plan of care and expected duration. Pain level reassessed. Patient is alert, oriented x 3, equal unlabored respirations, skin warm/dry/pink. Vital Signs: 18:02 BP 174 / 89; Pulse 96; Resp 20; Temp 98.5; Pulse Ox 100% ; Weight 113.4 kg; Height 5 bp ft. 5 in. ; 18:15 BP 167 / 98; Pulse 95; Resp 17; Pulse Ox 100% ; me1 19:30 BP 114 / 84; Pulse 97; Resp 17 S; Pulse Ox 99% on R/A; ss12 18:02 Body Mass Index 41.60 (113.40 kg, 165.1 cm) bp ED Course: 17:51 Patient arrived in ED. gl 17:52 [facility] kb 17:52 Yordy Barrios MD is Attending Physician. kb 18:03 Triage completed. bp 18:03 Arm band placed on. bp 18:10 Bhavana Dominguez, MOIZ is Primary Nurse. me1 18:13 Patient has correct armband on for positive identification. Bed in low position. Call [facility] light in reach. Side rails up X 1. Provided Education on: POC. Verbalized understanding.. Client placed on continuous cardiac and pulse oximetry monitoring. NIBP monitoring applied. Pulse ox on. NIBP on. 18:13 No provider procedures requiring assistance completed. vt1 18:21 Basic Metabolic Panel Sent. vt1 18:21 CBC with Diff Sent. vt1 18:21 Test, Urine Sent. vt1 18:21 Initial lab(s) drawn, by me, sent to lab. Inserted saline lock: 22 gauge in left [facility] antecubital area, using aseptic technique. 19:26 Pelvis Complete In Process Unspecified. EDMS 20:21 IV discontinued, intact, bleeding controlled, No redness/swelling at site. Pressure ss12 dressing applied. Administered Medications: 20:15 Drug: Ketorolac IVP 15 mg IVP once Route: IVP; Site: left antecubital; ss12 20:21 Follow up: Response: No adverse reaction; Pain is decreased 12 Medication: 18:13 VIS not applicable for this client. [facility] Outcome: 20:04 Discharge ordered by . harish 20:21 Discharged to home ambulatory, ss12 20:21 Condition: stable 20:21 Discharge instructions given to patient, family, Instructed on discharge instructions, follow up and referral plans. Demonstrated understanding of instructions, follow-up care, 20:22 Patient left the ED. ss12 Addendum: 03/08/2025 08:53 Addendum: Culture Results: Positive urine culture. Prescription called-in to pharmacy l [facility] of choice. Called in prescription to [facility] in . Amoxicillin 875 MG PO q 12 hours for 7 days. Signatures: Dispatcher [employer] EDHI Jane Story, FLOUR BLENDER HELPER-C FLOUR BLENDER HELPER-Benja Fang, RN RN bp Siddharth Doyle, RN RN 1 Bhavana Dominguez, RN RN vt1 Lory Oropeza, Shankar Reg gl Shannan Campbell, RN RN ss12
[2025-03-04] MEDS ORDERED: KETOROLAC 30 MG/ML INJ ONE (20:13)
[2025-03-04 20:42] VITALS: TEMP 98.5
[2025-03-04 20:45] VITALS: BP 114/84; O2SAT 99
== END 2025-03-04 20:22 | disposition home or self-care (01) ==
LOC: ER 17:48
DX: N94.6 Dysmenorrhea, unspecified (principal)
CPT/HCPCS: 36415; 76856; 80048; 81001; 81025; 85025; 87077; 87086; 87088; 87186; 96374; 99284